=== PATIENT | female | born 1990 | race Caucasian/White ===

== ENCOUNTER 2016-11-19 11:50 | Emergency (ER) | payer MEDICAID ==
[2011-06-19 10:08] VITALS: BMI 21.8
[2016-11-19 12:44] LABS: APPEARANCE HAZY (CLEAR); BASOPHILS 0.3 % (0.0-2.0); BILIRUBIN NEGATIVE (NEGATIVE); COLOR YELLOW (YELLOW); EOSINOPHILS 0.5 % (0-7); GLUCOSE NEGATIVE (NEGATIVE); HEMATOCRIT 42.7 % (36.0-48.0); HEMOGLOBIN 14.7 g/dL (12-16); IMMATURE GRANULOCYTES 0.3 % (0-5); KETONE SMALL mg/dL (NEGATIVE); LEUKOCYTE ESTERASE NEGATIVE (NEGATIVE); LYMPHOCYTES 30.6 % (15-50); MCH 32.9 pg (26.0-34.0); MCHC 34.4 g/dL (31.0-37.0); MCV 95.5 fL (80.0-100.0); MEAN PLATELET VOLUME 10.8 fL (7.4-10.4); MONOCYTES 8.3 % (2-11); NITRITE NEGATIVE (NEGATIVE); PLATELET COUNT 200 10x3/uL (130-400); PROTEIN NEGATIVE (NEGATIVE); RBC 4.47 10x6/uL (4.00-5.40); RDW 12.6 % (11.5-14.5); SPECIFIC GRAVITY 1.005 (1.005-1.020); UROBILINOGEN NORMAL (NORMAL); WBC 7.3 10x3/uL (4.8-10.8)
[2016-11-19 13:25] LABS: ALBUMIN 4.5 g/dL (3.4-5.0); ALKALINE PHOSPHATASE 64 U/L (46-116); ALT (SGPT) 14 U/L (10-68); BILIRUBIN - TOTAL 0.78 mg/dL (0.2-1.3); CALC OSMOLALITY 275 mosm/kg (275-300); CALCIUM 9.1 mg/dL (8.5-10.1); CARBON DIOXIDE 22.4 mmol/L (21.0-32.0); CHLORIDE - SERUM 101 mmol/L (98-107); CREATININE - SERUM 0.5 mg/dL (0.6-1.3); GLUCOSE 92 mg/dL (74-106); PROTEIN - SERUM 7.7 g/dL (6.4-8.2); SODIUM 138 mmol/L (136-145); UREA NITROGEN 13 mg/dL (7-18); eGFR NON AFRICAN AMERICAN > 90 mL/min (90-120)
== END 2016-11-19 18:06 | disposition home or self-care (01) ==
LOC: D.ER 11:50
PROVIDERS: Emergency Medicine
DX: J01.90 Acute sinusitis, unspecified (principal); B34.9 Viral infection, unspecified; F17.200 Nicotine dependence, unspecified, uncomplicated

== ENCOUNTER 2017-08-06 08:15 | Emergency (ER) | payer MEDICAID ==
[2011-06-19 10:08] VITALS: BMI 21.8
[2017-08-06 08:49] LABS: BASOPHILS 0.3 % (0-2); HEMATOCRIT 40.9 % (36.0-48.0); HEMOGLOBIN 14.4 g/dL (12-16); IMMATURE GRANULOCYTES 0.5 % (0-5); LYMPHOCYTES 24.3 % (15-50); MCH 33.4 pg (26.0-34.0); MCHC 35.2 g/dL (31.0-37.0); MCV 94.9 fL (80.0-100.0); MONOCYTES 5.9 % (2-11); PLATELET COUNT 225 10x3/uL (130-400); RBC 4.31 10x6/uL (4.00-5.40); RDW 11.7 % (11.5-14.5); WBC 11.8 10x3/uL (4.8-10.8)
[2017-08-06 09:00] LABS: ALBUMIN 4.2 g/dL (3.4-5.0); ALKALINE PHOSPHATASE 65 U/L (46-116); ALT (SGPT) 18 U/L (10-68); AMYLASE - SERUM 75 U/L (25-115); BILIRUBIN - TOTAL 1.69 mg/dL (0.2-1.3); CALC OSMOLALITY 273 mosm/kg (275-300); CALCIUM 9.3 mg/dL (8.5-10.1); CARBON DIOXIDE 22.4 mmol/L (21.0-32.0); CHLORIDE - SERUM 104 mmol/L (98-107); CREATININE - SERUM 0.6 mg/dL (0.6-1.3); GLUCOSE 110 mg/dL (74-106); LIPASE 192 U/L (73-393); POTASSIUM - SERUM 4.1 mmol/L (3.5-5.1); PROTEIN - SERUM 7.4 g/dL (6.4-8.2); SODIUM 137 mmol/L (136-145); UREA NITROGEN 10 mg/dL (7-18); eGFR NON AFRICAN AMERICAN > 90 mL/min (90-120)
[2017-08-06 09:14] LABS: APPEARANCE HAZY (CLEAR); BILIRUBIN NEGATIVE (NEGATIVE); COLOR YELLOW (YELLOW); GLUCOSE NEGATIVE (NEGATIVE); KETONE NEGATIVE (NEGATIVE); NITRITE NEGATIVE (NEGATIVE); PROTEIN NEGATIVE (NEGATIVE); SPECIFIC GRAVITY 1.005 (1.005-1.020); UROBILINOGEN NORMAL (NORMAL); WHITE CELLS - URINE 0-5 /hpf (0-5)
[2017-08-06 09:15] LABS: BACTERIA MODERATE /hpf (NONE SEEN); EPITHELIAL CELLS 0-5 /hpf (0-5); MUCUS <1+ /lpf (NONE SEEN)
[2017-08-06 09:16] LABS: HCG URINE NEGATIVE (NEGATIVE)
== END 2017-08-06 12:37 | disposition home or self-care (01) ==
LOC: D.ER 08:15
PROVIDERS: Emergency Medicine
DX: R10.9 Unspecified abdominal pain (principal)

== ENCOUNTER 2017-09-08 07:24 | Emergency (ER) | payer MEDICAID ==
[2011-06-19 10:08] VITALS: BMI 21.8
[2017-09-08 07:49] LABS: BASOPHILS 0.2 % (0-2); EOSINOPHILS 1.2 % (0-7); HEMATOCRIT 43.9 % (36.0-48.0); HEMOGLOBIN 15.5 g/dL (12-16); IMMATURE GRANULOCYTES 0.4 % (0-5); LYMPHOCYTES 15.3 % (15-50); MCH 33.9 pg (26.0-34.0); MCHC 35.3 g/dL (31.0-37.0); MCV 96.1 fL (80.0-100.0); MONOCYTES 4.8 % (2-11); NEUTROPHILS 78.1 % (40-80); PLATELET COUNT 239 10x3/uL (130-400); RBC 4.57 10x6/uL (4.00-5.40); RDW 12.3 % (11.5-14.5); WBC 12.1 10x3/uL (4.8-10.8)
[2017-09-08 08:05] LABS: HCG URINE NEGATIVE (NEGATIVE)
[2017-09-08 08:12] LABS: ALBUMIN 4.3 g/dL (3.4-5.0); ALKALINE PHOSPHATASE 76 U/L (46-116); ALT (SGPT) 12 U/L (10-68); AMYLASE - SERUM 69 U/L (25-115); BILIRUBIN - TOTAL 1.63 mg/dL (0.2-1.3); CALC OSMOLALITY 281 mosm/kg (275-300); CALCIUM 9.2 mg/dL (8.5-10.1); CARBON DIOXIDE 23.8 mmol/L (21.0-32.0); CHLORIDE - SERUM 105 mmol/L (98-107); CREATININE - SERUM 0.8 mg/dL (0.6-1.3); GLUCOSE 110 mg/dL (74-106); LIPASE 259 U/L (73-393); POTASSIUM - SERUM 3.5 mmol/L (3.5-5.1); PROTEIN - SERUM 7.6 g/dL (6.4-8.2); SODIUM 141 mmol/L (136-145); UREA NITROGEN 13 mg/dL (7-18); eGFR NON AFRICAN AMERICAN > 90 mL/min (90-120)
[2017-09-08 08:12] LABS: APPEARANCE CLOUDY (CLEAR); BILIRUBIN NEGATIVE (NEGATIVE); COLOR YELLOW (YELLOW); GLUCOSE NEGATIVE (NEGATIVE); KETONE NEGATIVE (NEGATIVE); NITRITE NEGATIVE (NEGATIVE); PROTEIN NEGATIVE (NEGATIVE)
[2017-09-08 08:15] LABS: AMORPHOUS SEDIMENT >1+ /lpf (NONE SEEN); BACTERIA MODERATE /hpf (NONE SEEN); GRANULAR CAST 0-5 /lpf (NONE SEEN); MUCUS <1+ /lpf (NONE SEEN); WHITE CELLS - URINE 0-5 /hpf (0-5)
== END 2017-09-08 11:33 | disposition home or self-care (01) ==
LOC: D.ER 07:24
PROVIDERS: Emergency Medicine
DX: N83.201 Unspecified ovarian cyst, right side (principal); F17.200 Nicotine dependence, unspecified, uncomplicated

== ENCOUNTER 2017-09-13 11:39 | Emergency (ER) | payer MEDICAID ==
[2011-06-19 10:08] VITALS: BMI 21.8
[2017-09-13 12:24] LABS: APPEARANCE CLEAR (CLEAR); BILIRUBIN NEGATIVE (NEGATIVE); COLOR YELLOW (YELLOW); GLUCOSE NEGATIVE (NEGATIVE); KETONE NEGATIVE (NEGATIVE); NITRITE NEGATIVE (NEGATIVE); PROTEIN NEGATIVE (NEGATIVE); SPECIFIC GRAVITY 1.015 (1.005-1.020); UROBILINOGEN NORMAL (NORMAL)
[2017-09-13 12:28] LABS: UDS - AMPHET NEGATIVE QUAL (NEGATIVE); UDS - BARB NEGATIVE QUAL (NEGATIVE); UDS - BENZO NEGATIVE QUAL (NEGATIVE); UDS - COCAINE NEGATIVE QUAL (NEGATIVE); UDS - OPIATE POSITIVE QUAL (NEGATIVE); UDS - PCP NEGATIVE QUAL (NEGATIVE); UDS - THC POSITIVE QUAL (NEGATIVE)
[2017-09-13 12:29] LABS: HCG URINE NEGATIVE (NEGATIVE)
[2017-09-13 12:31] LABS: BASOPHILS 0.2 % (0-2); EOSINOPHILS 0.2 % (0-7); HEMATOCRIT 40.9 % (36.0-48.0); HEMOGLOBIN 13.5 g/dL (12-16); IMMATURE GRANULOCYTES 0.2 % (0-5); LYMPHOCYTES 12.4 % (15-50); MEAN PLATELET VOLUME 10.7 fL (7.4-10.4); PLATELET COUNT 234 10x3/uL (130-400); RBC 4.09 10x6/uL (4.00-5.40); RDW 12.8 % (11.5-14.5); WBC 12.3 10x3/uL (4.8-10.8)
[2017-09-13 12:38] LABS: CALCIUM 8.9 mg/dL (8.5-10.1); CARBON DIOXIDE 25.5 mmol/L (21.0-32.0); CHLORIDE - SERUM 106 mmol/L (98-107); CREATININE - SERUM 0.7 mg/dL (0.6-1.3); POTASSIUM - SERUM 3.8 mmol/L (3.5-5.1); SODIUM 141 mmol/L (136-145); eGFR NON AFRICAN AMERICAN > 90 mL/min (90-120)
[2017-09-13 12:55] LABS: ALBUMIN 3.7 g/dL (3.4-5.0); ALKALINE PHOSPHATASE 53 U/L (46-116); ALT (SGPT) 17 U/L (10-68); CALC OSMOLALITY 280 mosm/kg (275-300); GLUCOSE 113 mg/dL (74-106); PROTEIN - SERUM 6.7 g/dL (6.4-8.2); UREA NITROGEN 9 mg/dL (7-18)
== END 2017-09-13 13:55 | disposition home or self-care (01) ==
LOC: D.ER 11:39
PROVIDERS: Emergency Medicine
DX: F41.9 Anxiety disorder, unspecified (principal); R00.0 Tachycardia, unspecified

== ENCOUNTER 2017-09-17 14:51 | Emergency (ER) | payer MEDICAID ==
[2011-06-19 10:08] VITALS: BMI 21.8
== END 2017-09-17 16:44 | disposition home or self-care (01) ==
LOC: D.ER 14:51
DX: M62.838 Other muscle spasm (principal); S16.1XXA Strain of muscle, fascia and tendon at neck level, initial encounter; X58.XXXA Exposure to other specified factors, initial encounter; Y93.89 Activity, other specified; Y92.019 Unspecified place in single-family (private) house as the place of occurrence of the external cause; F17.200 Nicotine dependence, unspecified, uncomplicated

== ENCOUNTER 2017-11-14 09:08 | Emergency (ER) | payer MEDICAID ==
[2011-06-19 10:08] VITALS: BMI 21.8
[2017-11-14 09:48] LABS: BASOPHILS 0.3 % (0-2); EOSINOPHILS 0.4 % (0-7); HEMATOCRIT 40.5 % (36.0-48.0); IMMATURE GRANULOCYTES 0.1 % (0-5); LYMPHOCYTES 17.4 % (15-50); MCH 32.9 pg (26.0-34.0); MCHC 34.6 g/dL (31.0-37.0); MCV 95.1 fL (80.0-100.0); MEAN PLATELET VOLUME 11.1 fL (7.4-10.4); MONOCYTES 5.6 % (2-11); NEUTROPHILS 76.2 % (40-80); PLATELET COUNT 197 10x3/uL (130-400); RBC 4.26 10x6/uL (4.00-5.40); RDW 12.2 % (11.5-14.5); WBC 10.1 10x3/uL (4.8-10.8)
[2017-11-14 09:54] LABS: ALBUMIN 4.3 g/dL (3.4-5.0); ALKALINE PHOSPHATASE 58 U/L (46-116); ALT (SGPT) 13 U/L (10-68); BILIRUBIN - TOTAL 2.66 mg/dL (0.2-1.3); CALC OSMOLALITY 279 mosm/kg (275-300); CALCIUM 8.9 mg/dL (8.5-10.1); CARBON DIOXIDE 28.7 mmol/L (21.0-32.0); CHLORIDE - SERUM 104 mmol/L (98-107); CREATININE - SERUM 0.8 mg/dL (0.6-1.3); GLUCOSE 96 mg/dL (74-106); PROTEIN - SERUM 7.1 g/dL (6.4-8.2); SODIUM 140 mmol/L (136-145); UREA NITROGEN 14 mg/dL (7-18); eGFR NON AFRICAN AMERICAN > 90 mL/min (90-120)
[2017-11-14 12:48] LABS: APPEARANCE HAZY (CLEAR); BILIRUBIN NEGATIVE (NEGATIVE); COLOR YELLOW (YELLOW); GLUCOSE NEGATIVE (NEGATIVE); KETONE NEGATIVE (NEGATIVE); NITRITE NEGATIVE (NEGATIVE); PROTEIN NEGATIVE (NEGATIVE); SPECIFIC GRAVITY 1.005 (1.005-1.020)
[2017-11-14 12:49] LABS: BACTERIA MODERATE /hpf (NONE SEEN); MUCUS <1+ /lpf (NONE SEEN); RED CELLS - URINE RARE /hpf (0-5); SPERMATOZOA RARE /hpf (NONE SEEN); WHITE CELLS - URINE 0-5 /hpf (0-5)
== END 2017-11-14 16:18 | disposition home or self-care (01) ==
LOC: D.ER 09:08
PROVIDERS: Family Medicine
DX: N39.0 Urinary tract infection, site not specified (principal)

== ENCOUNTER 2017-11-19 07:31 | Emergency (ER) | payer MEDICAID ==
[2011-06-19 10:08] VITALS: BMI 21.8
[2017-11-19 08:20] LABS: APPEARANCE SLT CLOUDY (CLEAR); BACTERIA MODERATE /hpf (NONE SEEN); BILIRUBIN NEGATIVE (NEGATIVE); COLOR YELLOW (YELLOW); GLUCOSE NEGATIVE (NEGATIVE); KETONE NEGATIVE (NEGATIVE); NITRITE NEGATIVE (NEGATIVE); PROTEIN NEGATIVE (NEGATIVE); SPECIFIC GRAVITY 1.005 (1.005-1.020); UROBILINOGEN NORMAL (NORMAL); WHITE CELLS - URINE 0-5 /hpf (0-5)
== END 2017-11-19 08:35 | disposition home or self-care (01) ==
LOC: D.ER 07:31
PROVIDERS: Emergency Medicine
DX: N28.89 Other specified disorders of kidney and ureter (principal); M54.5 Low back pain

== ENCOUNTER 2017-11-24 14:22 | Emergency (ER) | payer MEDICAID ==
[2011-06-19 10:08] VITALS: BMI 21.8
[2017-11-24 15:26] LABS: APPEARANCE HAZY (CLEAR); BILIRUBIN NEGATIVE (NEGATIVE); COLOR YELLOW (YELLOW); GLUCOSE NEGATIVE (NEGATIVE); KETONE NEGATIVE (NEGATIVE); NITRITE NEGATIVE (NEGATIVE); PROTEIN TRACE mg/dL (NEGATIVE); UROBILINOGEN NORMAL (NORMAL)
[2017-11-24 15:27] LABS: BACTERIA FEW /hpf (NONE SEEN); EPITHELIAL CELLS 0-5 /hpf (0-5); MUCUS <1+ /lpf (NONE SEEN); RED CELLS - URINE 0-5 /hpf (0-5); WHITE CELLS - URINE 0-5 /hpf (0-5)
== END 2017-11-24 19:11 | disposition home or self-care (01) ==
LOC: D.ER 14:22
PROVIDERS: Family Medicine
DX: R10.9 Unspecified abdominal pain (principal); N28.89 Other specified disorders of kidney and ureter; J11.1 Influenza due to unidentified influenza virus with other respiratory manifestations; F17.200 Nicotine dependence, unspecified, uncomplicated

== ENCOUNTER 2017-12-08 11:16 | Inpatient (IN) | payer MEDICAID ==
[~2017-12-08] VITALS: Ht 162.6 cm; Wt 46.9 kg
[2017-12-08 11:54] LABS: INR 1.11 (0.85-1.17); PROTIME 13.9 SECONDS (11.6-15.0)
[2017-12-08 11:55] LABS: BASOPHILS 0.1 % (0-2); EOSINOPHILS 0 % (0-7); HEMATOCRIT 42.8 % (36.0-48.0); HEMOGLOBIN 15.2 g/dL (12-16); IMMATURE GRANULOCYTES 0.5 % (0-5); LYMPHOCYTES 5.2 % (15-50); MCHC 35.5 g/dL (31.0-37.0); MONOCYTES 2.5 % (2-11); NEUTROPHILS 91.7 % (40-80); PLATELET COUNT 266 10x3/uL (130-400)
[2017-12-08 12:00] LABS: ALBUMIN 4.8 g/dL (3.4-5.0); ANION GAP 19.8 mmol/L (8-16); BILIRUBIN - TOTAL 1.1 mg/dL (0.2-1.3); CALCIUM 9.9 mg/dL (8.5-10.1); CARBON DIOXIDE 23.9 mmol/L (21.0-32.0); MAGNESIUM - SERUM 1.5 mg/dL (1.8-2.4); POTASSIUM - SERUM 3.7 mmol/L (3.5-5.1); PROTEIN - SERUM 8.6 g/dL (6.4-8.2)
[2017-12-08 12:11] LABS: UDS - AMPHET NEGATIVE QUAL (NEGATIVE); UDS - BARB NEGATIVE QUAL (NEGATIVE); UDS - BENZO POSITIVE QUAL (NEGATIVE); UDS - COCAINE NEGATIVE QUAL (NEGATIVE); UDS - OPIATE NEGATIVE QUAL (NEGATIVE); UDS - PCP NEGATIVE QUAL (NEGATIVE); UDS - THC POSITIVE QUAL (NEGATIVE)
[2017-12-08 13:03] LABS: APPEARANCE HAZY (CLEAR); BACTERIA FEW /hpf (NONE SEEN); BILIRUBIN NEGATIVE (NEGATIVE); COLOR YELLOW (YELLOW); EPITHELIAL CELLS 0-5 /hpf (0-5); GLUCOSE NEGATIVE (NEGATIVE); KETONE MODERATE mg/dL (NEGATIVE); MUCUS <1+ /lpf (NONE SEEN); NITRITE NEGATIVE (NEGATIVE); PROTEIN 1+ mg/dL (NEGATIVE); RED CELLS - URINE RARE /hpf (0-5); SPECIFIC GRAVITY 1.005 (1.005-1.020); UROBILINOGEN NORMAL (NORMAL); WHITE CELLS - URINE 0-5 /hpf (0-5)
[2017-12-08 19:15] LABS: HEMATOCRIT 37.5 % (36.0-48.0); HEMOGLOBIN 13.2 g/dL (12-16)
[2017-12-08] MEDS ORDERED: HYDROCODONE-APA1 TAB PO (21:38)
[2017-12-08 22:21] LABS: HEMATOCRIT 34.5 % (36.0-48.0)
[2017-12-09 01:31] VITALS: BMI 18.9
[2017-12-09 04:00] VITALS: BP 91/49
[2017-12-09 05:52] LABS: BASOPHILS 0.1 % (0-2); EOSINOPHILS 0.1 % (0-7); HEMATOCRIT 33.4 % (36.0-48.0); HEMOGLOBIN 11.4 g/dL (12-16); IMMATURE GRANULOCYTES 0.3 % (0-5); LYMPHOCYTES 25.9 % (15-50); MCH 32.2 pg (26.0-34.0); MCHC 34.1 g/dL (31.0-37.0); MCV 94.4 fL (80.0-100.0); MEAN PLATELET VOLUME 10.5 fL (7.4-10.4); MONOCYTES 7.4 % (2-11); NEUTROPHILS 66.2 % (40-80)
[2017-12-09 06:14] LABS: CALCIUM 8.3 mg/dL (8.5-10.1); CARBON DIOXIDE 24.3 mmol/L (21.0-32.0); CHLORIDE - SERUM 106 mmol/L (98-107); POTASSIUM - SERUM 3.3 mmol/L (3.5-5.1); SODIUM 140 mmol/L (136-145)
[2017-12-09 06:18] LABS: CALC OSMOLALITY 278 mosm/kg (275-300); CREATININE - SERUM 0.6 mg/dL (0.6-1.3); GLUCOSE 91 mg/dL (74-106); UREA NITROGEN 12 mg/dL (7-18); eGFR NON AFRICAN AMERICAN > 90 mL/min (90-120)
[2017-12-09 06:21] LABS: PLATELET COUNT 190 10x3/uL (130-400); RBC 3.54 10x6/uL (4.00-5.40)
[2017-12-09 08:46] VITALS: BP 101/57
[2017-12-09 09:20] LABS: INR 1.11 (0.85-1.17); PROTIME 13.9 SECONDS (11.6-15.0)
[2017-12-09 10:41] VITALS: BMI 18.8
[2017-12-09 11:47] LABS: HEMATOCRIT 35.1 % (36.0-48.0)
[2017-12-09 11:53] VITALS: BP 106/61
[2017-12-09 12:14] VITALS: Ht 162.6 cm; Wt 46.9 kg
[2017-12-09 15:59] VITALS: BP 100/48
[2017-12-09 18:31] LABS: HEMATOCRIT 33.6 % (36.0-48.0); HEMOGLOBIN 11.6 g/dL (12-16)
[2017-12-09 20:56] VITALS: BP 105/55
[2017-12-09 23:15] LABS: HEMATOCRIT 32.8 % (36.0-48.0); HEMOGLOBIN 11.2 g/dL (12-16)
[2017-12-10 01:20] VITALS: BP 113/51
[2017-12-10 05:40] LABS: BASOPHILS 0.2 % (0-2); EOSINOPHILS 0.3 % (0-7); HEMATOCRIT 32.9 % (36.0-48.0); HEMOGLOBIN 11.3 g/dL (12-16); IMMATURE GRANULOCYTES 0.3 % (0-5); LYMPHOCYTES 35.5 % (15-50); MCH 32.2 pg (26.0-34.0); MCHC 34.3 g/dL (31.0-37.0); MCV 93.7 fL (80.0-100.0); MEAN PLATELET VOLUME 10.6 fL (7.4-10.4); MONOCYTES 5.5 % (2-11); NEUTROPHILS 58.2 % (40-80); PLATELET COUNT 181 10x3/uL (130-400); RBC 3.51 10x6/uL (4.00-5.40); RDW 11.8 % (11.5-14.5); WBC 9.4 10x3/uL (4.8-10.8)
[2017-12-10 05:51] LABS: CALC OSMOLALITY 279 mosm/kg (275-300); CALCIUM 7.9 mg/dL (8.5-10.1); CARBON DIOXIDE 23.7 mmol/L (21.0-32.0); CHLORIDE - SERUM 106 mmol/L (98-107); CREATININE - SERUM 0.7 mg/dL (0.6-1.3); GLUCOSE 75 mg/dL (74-106); POTASSIUM - SERUM 3.7 mmol/L (3.5-5.1); SODIUM 140 mmol/L (136-145); eGFR NON AFRICAN AMERICAN > 90 mL/min (90-120)
[2017-12-10 05:57] LABS: UREA NITROGEN 19 mg/dL (7-18)
[2017-12-10 06:40] VITALS: BP 95/42
[2017-12-10 08:35] VITALS: BP 110/71
[2017-12-10 11:59] VITALS: BP 114/57
[2017-12-10] MEDS ORDERED: NICODERM C1 PATCH .1 TRANSDERM (14:45)
[2017-12-10] MEDS ORDERED: OMEPRAZOLE40 MG PO (14:45)
[2017-12-10] MEDS ORDERED: PEPCID40 MG PO (14:46)
[2017-12-10 15:24] VITALS: BP 99/44
== END 2017-12-10 17:23 | disposition home or self-care (01) | DRG 381 ==
LOC: D.ER 11:16 → D.M2 19:45 → D.EDHOLD 19:45 → D.M2 19:57
PROVIDERS: Internal Medicine Gastroenterology; Internal Medicine Nephrology; Nurse Practitioner Family
PROC: 0DB58ZX Excision of Esophagus, Via Natural or Artificial Opening Endoscopic, Diagnostic (ICD-10-PCS; principal; 2017-12-09 16:00)
DX: K22.11 Ulcer of esophagus with bleeding (principal); D62 Acute posthemorrhagic anemia; Z68.1 Body mass index [BMI] 19.9 or less, adult; K92.2 Gastrointestinal hemorrhage, unspecified; E83.59 Other disorders of calcium metabolism; N29 Other disorders of kidney and ureter in diseases classified elsewhere; F41.9 Anxiety disorder, unspecified; K27.9 Peptic ulcer, site unspecified, unspecified as acute or chronic, without hemorrhage or perforation

== ENCOUNTER 2018-02-07 09:56 | Emergency (ER) | payer MEDICAID ==
[2017-12-09 12:14] VITALS: BMI 18.8
[~2018-02-07 09:56] MED LIST: HYDROCODONE-APA1 TAB PO; NICODERM C1 PATCH .1 TRANSDERM; OMEPRAZOLE40 MG PO; PEPCID40 MG PO
[2018-02-07 10:22] LABS: BASOPHILS 0.2 % (0-2); EOSINOPHILS 0.3 % (0-7); HEMATOCRIT 42.9 % (36.0-48.0); HEMOGLOBIN 15.4 g/dL (12-16); IMMATURE GRANULOCYTES 0.3 % (0-5); MCH 33.6 pg (26.0-34.0); MCHC 35.9 g/dL (31.0-37.0); MCV 93.5 fL (80.0-100.0); MEAN PLATELET VOLUME 10.9 fL (7.4-10.4); NEUTROPHILS 76.2 % (40-80); PLATELET COUNT 219 10x3/uL (130-400); RBC 4.59 10x6/uL (4.00-5.40); WBC 9.6 10x3/uL (4.8-10.8)
[2018-02-07 10:32] LABS: ALBUMIN 4.6 g/dL (3.4-5.0); ALKALINE PHOSPHATASE 61 U/L (46-116); ALT (SGPT) 14 U/L (10-68); BILIRUBIN - TOTAL 3.07 mg/dL (0.2-1.3); CALC OSMOLALITY 277 mosm/kg (275-300); CALCIUM 9.3 mg/dL (8.5-10.1); CARBON DIOXIDE 21.6 mmol/L (21.0-32.0); CHLORIDE - SERUM 102 mmol/L (98-107); CREATININE - SERUM 0.9 mg/dL (0.6-1.3); POTASSIUM - SERUM 3.4 mmol/L (3.5-5.1); PROTEIN - SERUM 7.8 g/dL (6.4-8.2); SODIUM 137 mmol/L (136-145); UREA NITROGEN 17 mg/dL (7-18); eGFR NON AFRICAN AMERICAN 80 mL/min (90-120)
[2018-02-07 10:33] LABS: GLUCOSE 131 mg/dL (74-106)
[2018-02-07 10:49] LABS: APPEARANCE HAZY (CLEAR); BILIRUBIN NEGATIVE (NEGATIVE); COLOR YELLOW (YELLOW); GLUCOSE NEGATIVE (NEGATIVE); KETONE NEGATIVE (NEGATIVE); NITRITE NEGATIVE (NEGATIVE); PROTEIN 2+ mg/dL (NEGATIVE); SPECIFIC GRAVITY 1.015 (1.005-1.020); UROBILINOGEN NORMAL (NORMAL)
[2018-02-07 10:51] LABS: AMYLASE - SERUM 180 U/L (25-115); LIPASE 130 U/L (73-393)
[2018-02-07 10:51] LABS: BACTERIA MODERATE /hpf (NONE SEEN); CALCIUM OXALATE CRYSTALS OCC /hpf (NONE SEEN); MUCUS >1+ /lpf (NONE SEEN); RED CELLS - URINE 0-5 /hpf (0-5); WHITE CELLS - URINE 0-5 /hpf (0-5)
[2018-02-07 12:08] LABS: HCG URINE NEGATIVE (NEGATIVE); UDS - AMPHET NEGATIVE QUAL (NEGATIVE); UDS - BARB NEGATIVE QUAL (NEGATIVE); UDS - BENZO POSITIVE QUAL (NEGATIVE); UDS - COCAINE NEGATIVE QUAL (NEGATIVE); UDS - OPIATE NEGATIVE QUAL (NEGATIVE); UDS - PCP NEGATIVE QUAL (NEGATIVE); UDS - THC POSITIVE QUAL (NEGATIVE)
== END 2018-02-07 15:45 | disposition home or self-care (01) ==
LOC: D.ER 09:56
PROVIDERS: Emergency Medicine; Nurse Practitioner Family
DX: K52.9 Noninfective gastroenteritis and colitis, unspecified (principal); R11.10 Vomiting, unspecified; F17.200 Nicotine dependence, unspecified, uncomplicated

== ENCOUNTER 2018-02-11 08:01 | Emergency (ER) | payer MEDICAID ==
[2017-12-09 12:14] VITALS: BMI 18.8
[2018-02-11 08:29] LABS: BASOPHILS 0.5 % (0-2); EOSINOPHILS 3.5 % (0-7); HEMATOCRIT 39.5 % (36.0-48.0); IMMATURE GRANULOCYTES 0.3 % (0-5); LYMPHOCYTES 21.9 % (15-50); MCH 33.6 pg (26.0-34.0); MCHC 35.4 g/dL (31.0-37.0); MCV 94.7 fL (80.0-100.0); MONOCYTES 10.3 % (2-11); NEUTROPHILS 63.5 % (40-80); PLATELET COUNT 192 10x3/uL (130-400); RBC 4.17 10x6/uL (4.00-5.40); WBC 6.3 10x3/uL (4.8-10.8)
[2018-02-11 08:47] LABS: ALKALINE PHOSPHATASE 56 U/L (46-116); ALT (SGPT) 14 U/L (10-68); AMYLASE - SERUM 41 U/L (25-115); CALC OSMOLALITY 280 mosm/kg (275-300); CALCIUM 9.1 mg/dL (8.5-10.1); CHLORIDE - SERUM 105 mmol/L (98-107); CREATININE - SERUM 0.9 mg/dL (0.6-1.3); GLUCOSE 101 mg/dL (74-106); LIPASE 101 U/L (73-393); POTASSIUM - SERUM 3.4 mmol/L (3.5-5.1); PROTEIN - SERUM 6.8 g/dL (6.4-8.2); SODIUM 141 mmol/L (136-145); UREA NITROGEN 12 mg/dL (7-18); eGFR NON AFRICAN AMERICAN 80 mL/min (90-120)
[2018-02-11 09:20] LABS: APPEARANCE HAZY (CLEAR); BACTERIA FEW /hpf (NONE SEEN); BILIRUBIN NEGATIVE (NEGATIVE); COLOR YELLOW (YELLOW); EPITHELIAL CELLS 0-5 /hpf (0-5); GLUCOSE NEGATIVE (NEGATIVE); KETONE NEGATIVE (NEGATIVE); MUCUS >1+ /lpf (NONE SEEN); NITRITE NEGATIVE (NEGATIVE); PROTEIN NEGATIVE (NEGATIVE); RED CELLS - URINE 0-5 /hpf (0-5); SPECIFIC GRAVITY 1.015 (1.005-1.020); UROBILINOGEN NORMAL (NORMAL); WHITE CELLS - URINE RARE /hpf (0-5)
== END 2018-02-11 11:00 | disposition home or self-care (01) ==
LOC: D.ER 08:01
PROVIDERS: Family Medicine
DX: R11.10 Vomiting, unspecified (principal); K59.03 Drug induced constipation; T39.1X5A Adverse effect of 4-Aminophenol derivatives, initial encounter; Y92.019 Unspecified place in single-family (private) house as the place of occurrence of the external cause; F17.200 Nicotine dependence, unspecified, uncomplicated

== ENCOUNTER → 2018-07-02 11:36 | Emergency (ER) | payer SELFPAY ==
[2017-12-09 12:14] VITALS: BMI 18.8
[~2018-07-02 11:36] MED LIST changes: +BACTRIM 400-801 TAB PO; +HYDROCODON-ACE1 EAC7 PO; +MACROBID100 MG PO; +ZOFRAN ODT4 MG/UDTAB PO
== END | disposition home or self-care (01) ==
LOC: D.ER 11:36
DX: G43.909 Migraine, unspecified, not intractable, without status migrainosus (principal)

== ENCOUNTER 2018-07-08 06:15 | Emergency (ER) | payer SELFPAY ==
[~2018-07-08] VITALS: Ht 162.6 cm; Wt 50.9 kg
[~2018-07-08 06:15] MED LIST changes: -BACTRIM 400-801 TAB PO; -HYDROCODON-ACE1 EAC7 PO; -MACROBID100 MG PO; -ZOFRAN ODT4 MG/UDTAB PO
[2018-07-08 06:20] VITALS: Ht 162.6 cm; Wt 50.9 kg
[2018-07-08] MEDS ORDERED: BACTRIM 400-801 TAB PO (06:23)
[2018-07-08 06:57] LABS: BASOPHILS 1.1 % (0-2); EOSINOPHILS 3.1 % (0-7); HEMATOCRIT 36.1 % (36.0-48.0); HEMOGLOBIN 12.6 g/dL (12-16); IMMATURE GRANULOCYTES 0.7 % (0-5); LYMPHOCYTES 32.5 % (15-50); MCH 32.9 pg (26.0-34.0); MCHC 34.9 g/dL (31.0-37.0); MCV 94.3 fL (80.0-100.0); MEAN PLATELET VOLUME 10.2 fL (7.4-10.4); MONOCYTES 7.2 % (2-11); NEUTROPHILS 55.4 % (40-80); PLATELET COUNT 206 10x3/uL (130-400); RBC 3.83 10x6/uL (4.00-5.40); RDW 12.1 % (11.5-14.5); WBC 7.1 10x3/uL (4.8-10.8)
[2018-07-08 07:12] LABS: ALKALINE PHOSPHATASE 77 U/L (46-116); ALT (SGPT) 31 U/L (10-68); BILIRUBIN - TOTAL 0.54 mg/dL (0.2-1.3); CALC OSMOLALITY 286 mosm/kg (275-300); CALCIUM 8.7 mg/dL (8.5-10.1); CARBON DIOXIDE 24.9 mmol/L (21.0-32.0); CHLORIDE - SERUM 107 mmol/L (98-107); CREATININE - SERUM 0.8 mg/dL (0.6-1.3); GLUCOSE 116 mg/dL (74-106); PROTEIN - SERUM 7.1 g/dL (6.4-8.2); SODIUM 143 mmol/L (136-145); UREA NITROGEN 14 mg/dL (7-18); eGFR NON AFRICAN AMERICAN > 90 mL/min (90-120)
[2018-07-08 07:24] LABS: AMYLASE - SERUM 154 U/L (25-115); CKMB 0.3 U/L (0.0-3.6); CREATINE KINASE 47 UL (21-215); LIPASE 170 U/L (73-393)
[2018-07-08 07:25] LABS: TROPONIN-I < 0.017 ng/mL (0.000-0.060)
[2018-07-08 07:41] LABS: APPEARANCE CLEAR (CLEAR); BILIRUBIN NEGATIVE (NEGATIVE); COLOR YELLOW (YELLOW); GLUCOSE NEGATIVE (NEGATIVE); KETONE NEGATIVE (NEGATIVE); NITRITE NEGATIVE (NEGATIVE); PROTEIN NEGATIVE (NEGATIVE); UROBILINOGEN NORMAL (NORMAL)
[2018-07-08] MEDS ORDERED: MACROBID100 MG PO (07:55)
[2018-07-08] MEDS ORDERED: ZOFRAN ODT4 MG/UDTAB PO (07:56)
[2018-07-08] MEDS ORDERED: HYDROCODON-ACE1 EAC7 PO (07:56)
[2018-07-08 08:24] VITALS: BP 113/70
[2018-07-08 11:46] LABS: HCG URINE NEGATIVE (NEGATIVE)
== END 2018-07-08 08:30 | disposition home or self-care (01) ==
LOC: D.ER 06:15
PROVIDERS: Family Medicine
DX: M54.5 Low back pain (principal); R10.9 Unspecified abdominal pain; R11.2 Nausea with vomiting, unspecified

== ENCOUNTER 2018-08-01 02:09 | Emergency (ER) | payer SELFPAY ==
[~2018-08-01] VITALS: Ht 162.6 cm; Wt 59.1 kg
[~2018-08-01 02:09] MED LIST changes: +BACTRIM 400-801 TAB PO; +HYDROCODON-ACE1 EAC7 PO; +MACROBID100 MG PO; +ZOFRAN ODT4 MG/UDTAB PO
[2018-08-01 02:12] VITALS: Ht 162.6 cm; Wt 59.1 kg
[2018-08-01 02:34] LABS: APPEARANCE CLEAR (CLEAR); BILIRUBIN NEGATIVE (NEGATIVE); COLOR YELLOW (YELLOW); GLUCOSE NEGATIVE (NEGATIVE); KETONE SMALL mg/dL (NEGATIVE); NITRITE NEGATIVE (NEGATIVE); PROTEIN NEGATIVE (NEGATIVE)
[2018-08-01] MEDS ORDERED: NORCO 5/325 TAB1 TAB PO (04:59)
[2018-08-01] MEDS ORDERED: CYCLOBENZAPRINE10 MG PO (04:59)
[2018-08-01 05:17] VITALS: BP 134/78
== END 2018-08-01 05:17 | disposition home or self-care (01) ==
LOC: D.ER 02:09
PROVIDERS: Family Medicine
DX: M54.5 Low back pain (principal); F17.200 Nicotine dependence, unspecified, uncomplicated

== ENCOUNTER 2018-08-05 05:23 | Observation (INO) | payer MEDICAID ==
[~2018-08-05] VITALS: Ht 165.1 cm; Wt 51.7 kg
--- NOTE | ~2018-08-05 | MORECARE ---
CASE MANAGEMENT DISCHARGE SUMMARY PATIENT: PEGGY AVENDANO UNIT: [id number] ADM DATE: 08/05/18 AGE: 27 : [birth year] SEX: F ROOM/BED: D.2233 AUTHOR: STEFAN,DOC PHYSICIAN: REFERRING PHYSICIAN: LUH MAE MD DATE OF SERVICE: 08/06/18 Discharge Plan Patient Name: PEGGY AVENDANO Facility: [facility]:[place] : 1990 Planned Disposition: Home Anticipated Discharge Date: Discharge Date: Expected LOS: Initial Reviewer: [email or web address] Initial Review Date: 08/06/2018 Generated: 08/06/18 4:48 pm Comments DCP- Discharge Planning Updated by [email or web address]: Radha Carroll on 08/06/18 2:[address] Patient Name: PEGGY AVENDANO Admission Status: ER Accout number: [id number] Admission Date: 08-05-2018 : 1990 Admission Diagnosis: Attending: LUH MAE Current LOS: 1 Anticipated DC Date: Planned Disposition: Home Primary Insurance: MEDICAID [place] PEND[place] Discharge Planning Comments: CM met with patient and her to discuss discharge planning/needs. States she lives with her and 3 children. States she does not have any DME or outside resources assisting in the house and does not need any at this time. States she would like a list of Medicaid doctors in [place]. I provided her with the number for [facility] and instructed to call them for the list. I did check with Adrian in the Medicaid office and Breonna in registration and they do not have a list. No needs identified at this time. CM will continue to follow and assist with discharge planning/needs. Manager Data Warehouse: Radha Carroll DCPIA - Discharge Planning Initial Assessment Updated by [email or web address]: Radha Carroll on 08/06/18 3:22 pm * Is the patient Alert and Oriented? Yes * How many steps to enter\exit or inside your home? 20-24 * PCP Dr. Walden * Pharmacy [facility] on [address] * Preadmission Environment Home with Family * ADLs Independent * Equipment None * List name and contact numbers for known caregivers / representatives who currently or will assist patient after discharge: Alejandro Pastor - [phone] Shaq Avendano - Dad - [phone] * Verbal permission to speak to the caregivers and representatives has been obtained from the patient. Yes * Community resources currently utilized None * Additional services required to return to the preadmission environment? No * Can the patient safely return to the preadmission environment? Yes * Has this patient been hospitalized within the prior 30 days at any hospital? No Last DP export: 08/06/18 2:28 Patient Name: PEGGY AVENDANO Page 09988 at 1548 All edits/amendments must be made on the electronic document DICTATION DATE: 08/06/181547 PULVI MIXER OPERATOR: PATRICIA 08/06/181547 RPT#: [id number] DC DATE: STATUS: ADM IN [facility] [address] [place] [address] END OF REPORT
--- NOTE | ~2018-08-05 | MORECARE ---
CASE MANAGEMENT DISCHARGE SUMMARY PATIENT: PEGGY AVENDANO UNIT: [id number] ADM DATE: 08/05/18 AGE: 27 : 90 SEX: F ROOM/BED: D.2233 AUTHOR: STEFANDOC PHYSICIAN: REFERRING PHYSICIAN: LUH MAE MD DATE OF SERVICE: 08/10/18 Discharge Plan Patient Name: PEGGY AVENDANO Facility: [facility]:[place] : 1990 Planned Disposition: Home Anticipated Discharge Date: Discharge Date: 08/07/2018 Expected LOS: Initial Reviewer: [email or web address] Initial Review Date: 08/06/2018 Generated: 08/10/18 5:34 pm Comments DCP- Discharge Planning Updated by [email or web address]: Radha Carroll on 08/07/18 1:[address] Patient Name: PEGGY AVENDANO Encounter No: [id number] : 1990 Primary Insurance: MEDICAID [place] PENDING Anticipated DC Date: Planned Disposition: Home External Planned Provider: : DCP follow-up note: Patient in agreement with discharge plan. Smiling, just got out of the shower, states most of the pain is gone. States ambulating without difficulty. No changes to plan. Case management will follow and assist as needed. Radha Carroll DCP- Discharge Planning Updated by [email or web address]: Radha Carroll on 08/06/18 2:[address] Patient Name: PEGGY AVENDANO Admission Status: ER Accout number: [id number] Admission Date: 08-05-2018 : 1990 Admission Diagnosis: Attending: LUH MAE Current LOS: 1 Anticipated DC Date: Planned Disposition: Home Primary Insurance: MEDICAID [place] PENDING Discharge Planning Comments: CM met with patient and her to discuss discharge planning/needs. States she lives with her and 3 children. States she does not have any DME or outside resources assisting in the house and does not need any at this time. States she would like a list of Medicaid doctors in [place]. I provided her with the number for [facility] and instructed to call them for the list. I did check with Adrian in the Medicaid office and Breonna in registration and they do not have a list. No needs identified at this time. CM will continue to follow and assist with discharge planning/needs. Geospatial Systems Integrator: Radha Glen DCPIA - Discharge Planning Initial Assessment Updated by [email or web address]: Radha Glen on 08/06/18 3:22 pm * Is the patient Alert and Oriented? Yes * How many steps to enter\exit or inside your home? 20-24 * PCP Dr. Walden * Pharmacy [facility] on [address] * Preadmission Environment Home with Family * ADLs Independent * Equipment None * List name and contact numbers for known caregivers / representatives who currently or will assist patient after discharge: Alejandro Pastor - [phone] Shaq Mat - Dad - [phone] * Verbal permission to speak to the caregivers and representatives has been obtained from the patient. Yes * Community resources currently utilized None * Additional services required to return to the preadmission environment? No * Can the patient safely return to the preadmission environment? Yes * Has this patient been hospitalized within the prior 30 days at any hospital? No Last DP export: 08/07/18 1:26 Patient Name: PEGGY AVENDANO Page [id number] at 1634 All edits/amendments must be made on the electronic document DICTATION DATE: 08/10/181633 CARDIOVASCULAR RADIOLOGIC TECHNOLOGIST: PATRICIA 08/10/181633 RPT#: [id number] DC DATE:08/07/18 STATUS: DIS IN [facility] [address] [place] [address] END OF REPORT
--- NOTE | ~2018-08-05 | MORECARE ---
CASE MANAGEMENT DISCHARGE SUMMARY PATIENT: PEGGY AVENDANO UNIT: [id number] ADM DATE: 08/05/18 AGE: 27 : [birth year] SEX: F ROOM/BED: D.2233 AUTHOR: CRISTI AVILES PHYSICIAN: REFERRING PHYSICIAN: LUH MAE MD DATE OF SERVICE: 08/06/18 Discharge Plan Patient Name: PEGGY AVENDANO Facility: [facility]:[place] : 1990 Planned Disposition: Home Anticipated Discharge Date: Discharge Date: Expected LOS: Initial Reviewer: [email or web address] Initial Review Date: 08/06/2018 Generated: 08/06/18 4:19 pm Patient Name: PEGGY AVENDANO Page 18959 at 1519 All edits/amendments must be made on the electronic document DICTATION DATE: 08/06/181517 FIELD STAFF: PATRICIA 08/06/181517 RPT#: [id number] DC DATE: STATUS: ADM IN [facility] [address] [place] [address] END OF REPORT
--- NOTE | ~2018-08-05 | MORECARE ---
CASE MANAGEMENT DISCHARGE SUMMARY PATIENT: PEGGY AVENDANO UNIT: [id number] ADM DATE: 08/05/18 AGE: 27 : [birth year] SEX: F ROOM/BED: D.2233 AUTHOR: STEFAN,DOC PHYSICIAN: REFERRING PHYSICIAN: LUH MAE MD DATE OF SERVICE: 08/07/18 Discharge Plan Patient Name: PEGGY AVENDANO Facility: [facility]:[place] : 1990 Planned Disposition: Home Anticipated Discharge Date: Discharge Date: Expected LOS: Initial Reviewer: [email or web address] Initial Review Date: 08/06/2018 Generated: 08/07/18 3:26 pm Comments DCP- Discharge Planning Updated by [email or web address]: Radha Carroll on 08/07/18 1:[address] Patient Name: PEGGY AVENDANO Encounter No: [id number] : 1990 Primary Insurance: MEDICAID [place] PENDING Anticipated DC Date: Planned Disposition: Home External Planned Provider: : DCP follow-up note: Patient in agreement with discharge plan. Smiling, just got out of the shower, states most of the pain is gone. States ambulating without difficulty. No changes to plan. Case management will follow and assist as needed. Radha Glen DCP- Discharge Planning Updated by [email or web address]: Radha Carroll on 08/06/18 2:[address] Patient Name: PEGGY AVENDANO Admission Status: ER Accout number: [id number] Admission Date: 08-05-2018 : 1990 Admission Diagnosis: Attending: LUH MAE Current LOS: 1 Anticipated DC Date: Planned Disposition: Home Primary Insurance: MEDICAID [place] PENDING Discharge Planning Comments: CM met with patient and her to discuss discharge planning/needs. States she lives with her and 3 children. States she does not have any DME or outside resources assisting in the house and does not need any at this time. States she would like a list of Medicaid doctors in [place]. I provided her with the number for [facility] and instructed to call them for the list. I did check with Adrian in the Medicaid office and Breonna in registration and they do not have a list. No needs identified at this time. CM will continue to follow and assist with discharge planning/needs. Horseradish Grinder: Radha Glen DCPIA - Discharge Planning Initial Assessment Updated by [email or web address]: Radha Glen on 08/06/18 3:22 pm * Is the patient Alert and Oriented? Yes * How many steps to enter\exit or inside your home? 20-24 * PCP Dr. Walden * Pharmacy [facility] on [address] * Preadmission Environment Home with Family * ADLs Independent * Equipment None * List name and contact numbers for known caregivers / representatives who currently or will assist patient after discharge: Alejandro Pastor - [phone] Shaq Mat - Dad - [phone] * Verbal permission to speak to the caregivers and representatives has been obtained from the patient. Yes * Community resources currently utilized None * Additional services required to return to the preadmission environment? No * Can the patient safely return to the preadmission environment? Yes * Has this patient been hospitalized within the prior 30 days at any hospital? No Last DP export: 08/06/18 2:48 Patient Name: PEGGY AVENDANO Page 89833 at 1426 All edits/amendments must be made on the electronic document DICTATION DATE: 08/07/181424 MEDICAL ATTENDANT: PATRICIA 08/07/181424 RPT#: [id number] ME DATE: STATUS: ADM IN [facility] [address] [place] [address] END OF REPORT
--- NOTE | ~2018-08-05 | OP ---
PATIENT NAME: PEGGY AVENDANO MEDICAL RECORD: [id number] :[birth year] LOCATION:D[address]MS [address] ADMISSION DATE:08/05/18 SURGEON: CÉSAR COONEY MD DATE OF OPERATION: 08/06/2018 PREOPERATIVE DIAGNOSIS: Large disc herniation L4-L5, right. POSTOPERATIVE DIAGNOSES: Large disc herniation L4-L5, right with right L5 radiculopathy. SURGEON: César Cooney MD PROCEDURES: Lumbar laminotomy, medial facetectomy, and foraminotomy with discectomy and L4-L5 on the right with METRx retractor and microscope. DESCRIPTION AND TECHNIQUE: After induction of general endotracheal anesthesia, the patient was rolled prone on the Helio frame. Lumbar spine was prepped and draped in usual sterile fashion. Fluoroscopic x-ray and spinal needle localized the L4-L5 interspace on the right side. A stab incision was created with #11 blade and series of dilators were used to advance a METRx retractor to the L4-L5 interspace on the right side. Following this, the level was confirmed with fluoroscopic x-ray. A microscope and Midas Faustino drill were used to perform laminotomy, medial facetectomy, and foraminotomy L4-L5 on the right. Hypertrophied ligamentum flavum was removed with Cloward rongeurs. Following this, there was a large free fragment disc herniation located within the canal. This was removed in a piecemeal fashion with pituitary rongeurs and curettes as well as Alex elevator. Additional material was removed from the disc space. Following this, the L5 nerve root was decompressed well. Meticulous hemostasis was maintained throughout the wound. Wound was irrigated with copious amounts of Ancef irrigant solution. The retractor was removed. The fascia was reapproximated with interrupted 2-0 Vicryl suture, the subdermal layer was closed with 3-0 Vicryl suture. The skin was reapproximated with Steri-Strips and benzoin. A sterile dressing was applied to the wound. The patient was awakened in good condition and taken to recovery. All counts were reported as correct. Estimated blood loss was minimal. TRANSINT:[id number] Voice Confirmation ID: [id number] DOCUMENT ID: [id number] CÉSAR COONEY MD at 0582 CC: [id number] DICTATION DATE: 08/06/18 1346 LAUNDRY TECH: 08/06/18 1400 ADM IN [facility] [address] [place] [id number]
--- NOTE | ~2018-08-05 | MORECARE ---
CASE MANAGEMENT DISCHARGE SUMMARY PATIENT: PEGGY AVENDANO UNIT: [id number] ADM DATE: 08/05/18 AGE: 27 : [birth year] SEX: F ROOM/BED: D.2233 AUTHOR: CRISTI AVILES PHYSICIAN: REFERRING PHYSICIAN: LUH MAE MD DATE OF SERVICE: 08/06/18 Discharge Plan Patient Name: PEGGY AVENDANO [facility] : 1990 Planned Disposition: Home Anticipated Discharge Date: Discharge Date: Expected LOS: Initial Reviewer: [email or web address] Initial Review Date: 08/06/2018 Generated: 08/06/18 4:28 pm DCPIA - Discharge Planning Initial Assessment Updated by [email or web address]: Radha Carroll on 08/06/18 3:22 pm * Is the patient Alert and Oriented? Yes * How many steps to enter\exit or inside your home? 20-24 * PCP Dr. Walden * Pharmacy [facility] * Preadmission Environment Home with Family * ADLs Independent * Equipment None * List name and contact numbers for known caregivers / representatives who currently or will assist patient after discharge: Alejandro Pastor - [phone] ShaqHarry - Fif - [phone] * Verbal permission to speak to the caregivers and representatives has been obtained from the patient. Yes * Community resources currently utilized None * Additional services required to return to the preadmission environment? No * Can the patient safely return to the preadmission environment? Yes * Has this patient been hospitalized within the prior 30 days at any hospital? No Last DP export: 08/06/18 2:19 Patient Name: PEGGY AVENDANO Page 80470 at 1528 All edits/amendments must be made on the electronic document DICTATION DATE: 08/06/181527 CONSTRUCTION TEACHER: PATRICIA 08/06/181527 RPT#: [id number] DC DATE: STATUS: ADM IN [facility] [address] [place] [address] END OF REPORT
[~2018-08-05 05:23] MED LIST changes: +CYCLOBENZAPRINE10 MG PO; +NORCO 5/325 TAB1 TAB PO
[2018-08-05 06:13] LABS: HCG URINE NEGATIVE (NEGATIVE)
[2018-08-05 06:30] LABS: AMORPHOUS SEDIMENT <1+ /lpf (NONE SEEN); APPEARANCE CLEAR (CLEAR); BACTERIA MODERATE /hpf (NONE SEEN); BILIRUBIN NEGATIVE (NEGATIVE); COLOR YELLOW (YELLOW); GLUCOSE NEGATIVE (NEGATIVE); GRANULAR CAST RARE /lpf (NONE SEEN); KETONE NEGATIVE (NEGATIVE); MUCUS <1+ /lpf (NONE SEEN); NITRITE NEGATIVE (NEGATIVE); PROTEIN NEGATIVE (NEGATIVE); WHITE CELLS - URINE 0-5 /hpf (0-5)
[2018-08-05 06:41] LABS: BASOPHILS 0.5 % (0-2); EOSINOPHILS 1.2 % (0-7); HEMATOCRIT 35.5 % (36.0-48.0); HEMOGLOBIN 12.4 g/dL (12-16); IMMATURE GRANULOCYTES 0.4 % (0-5); LYMPHOCYTES 46.9 % (15-50); MCH 32.1 pg (26.0-34.0); MCHC 34.9 g/dL (31.0-37.0); MEAN PLATELET VOLUME 10.2 fL (7.4-10.4); MONOCYTES 8.9 % (2-11); NEUTROPHILS 42.1 % (40-80); PLATELET COUNT 214 10x3/uL (130-400); RBC 3.86 10x6/uL (4.00-5.40); RDW 12.5 % (11.5-14.5); WBC 8.1 10x3/uL (4.8-10.8)
[2018-08-05 06:57] LABS: ALBUMIN 3.6 g/dL (3.4-5.0); ALKALINE PHOSPHATASE 93 U/L (46-116); ALT (SGPT) 39 U/L (10-68); AMYLASE - SERUM 58 U/L (25-115); CALC OSMOLALITY 278 mosm/kg (275-300); CARBON DIOXIDE 22.4 mmol/L (21.0-32.0); CHLORIDE - SERUM 106 mmol/L (98-107); CREATININE - SERUM 0.6 mg/dL (0.6-1.3); GLUCOSE 106 mg/dL (74-106); LIPASE 139 U/L (73-393); POTASSIUM - SERUM 4.3 mmol/L (3.5-5.1); PROTEIN - SERUM 6.8 g/dL (6.4-8.2); SODIUM 140 mmol/L (136-145); UREA NITROGEN 13 mg/dL (7-18); eGFR NON AFRICAN AMERICAN > 90 mL/min (90-120)
[2018-08-05 08:39] LABS: UDS - AMPHET NEGATIVE QUAL (NEGATIVE); UDS - BARB NEGATIVE QUAL (NEGATIVE); UDS - BENZO NEGATIVE QUAL (NEGATIVE); UDS - COCAINE NEGATIVE QUAL (NEGATIVE); UDS - OPIATE NEGATIVE QUAL (NEGATIVE); UDS - PCP NEGATIVE QUAL (NEGATIVE); UDS - THC POSITIVE QUAL (NEGATIVE)
[2018-08-05 11:39] VITALS: BP 124/67; Ht 165.1 cm; Wt 51.7 kg
[2018-08-05 12:29] VITALS: BP 124/67
[2018-08-05 17:14] VITALS: BP 117/70
[2018-08-05 20:00] VITALS: BP 103/57
[2018-08-05 21:31] LABS: APPEARANCE CLEAR (CLEAR); COLOR YELLOW (YELLOW)
[2018-08-05 21:32] LABS: BILIRUBIN NEGATIVE (NEGATIVE); GLUCOSE NEGATIVE (NEGATIVE); KETONE MODERATE mg/dL (NEGATIVE); NITRITE NEGATIVE (NEGATIVE); PROTEIN NEGATIVE (NEGATIVE); UROBILINOGEN NORMAL (NORMAL)
[2018-08-06] VITALS (11 sets, daily range): BP systolic 107–128; BP diastolic 60–83
[2018-08-06 16:02] LABS: BASOPHILS 0.1 % (0-2); EOSINOPHILS 0 % (0-7); HEMATOCRIT 35.3 % (36.0-48.0); HEMOGLOBIN 12.3 g/dL (12-16); IMMATURE GRANULOCYTES 0.3 % (0-5); MCH 32.5 pg (26.0-34.0); MCHC 34.8 g/dL (31.0-37.0); MCV 93.4 fL (80.0-100.0); MEAN PLATELET VOLUME 10.4 fL (7.4-10.4); MONOCYTES 1.7 % (2-11); NEUTROPHILS 82.9 % (40-80); PLATELET COUNT 250 10x3/uL (130-400); RBC 3.78 10x6/uL (4.00-5.40); RDW 12.3 % (11.5-14.5); WBC 9.4 10x3/uL (4.8-10.8)
[2018-08-06 16:17] LABS: CALC OSMOLALITY 280 mosm/kg (275-300); CALCIUM 9.1 mg/dL (8.5-10.1); CHLORIDE - SERUM 107 mmol/L (98-107); CREATININE - SERUM 0.6 mg/dL (0.6-1.3); GLUCOSE 116 mg/dL (74-106); POTASSIUM - SERUM 4.2 mmol/L (3.5-5.1); SODIUM 141 mmol/L (136-145); UREA NITROGEN 11 mg/dL (7-18); eGFR NON AFRICAN AMERICAN > 90 mL/min (90-120)
[2018-08-07] VITALS: BP 98/47
[2018-08-07 07:45] LABS: HEMATOCRIT 30.8 % (36.0-48.0); HEMOGLOBIN 11.1 g/dL (12-16); LYMPHOCYTES 19.2 % (15-50); MCH 32.6 pg (26.0-34.0); MEAN PLATELET VOLUME 10.3 fL (7.4-10.4); NEUTROPHILS 73.6 % (40-80); PLATELET COUNT 255 10x3/uL (130-400); RDW 12.2 % (11.5-14.5); WBC 10.1 10x3/uL (4.8-10.8)
[2018-08-07 07:52] LABS: MCV 90.6 fL (80.0-100.0)
[2018-08-07 07:53] LABS: CALC OSMOLALITY 279 mosm/kg (275-300); CALCIUM 8.6 mg/dL (8.5-10.1); CARBON DIOXIDE 23.5 mmol/L (21.0-32.0); CHLORIDE - SERUM 104 mmol/L (98-107); CREATININE - SERUM 0.5 mg/dL (0.6-1.3); GLUCOSE 110 mg/dL (74-106); POTASSIUM - SERUM 3.7 mmol/L (3.5-5.1); SODIUM 140 mmol/L (136-145); UREA NITROGEN 13 mg/dL (7-18); eGFR NON AFRICAN AMERICAN > 90 mL/min (90-120)
[2018-08-07 07:55] VITALS: BP 113/69
[2018-08-07] MEDS ORDERED: NORCO 10-325 TA1 TAB PO (14:58)
[2018-08-07] MEDS ORDERED: NICOTINE TOPICAL (15:35)
== END 2018-08-07 16:34 | disposition home or self-care (01) ==
LOC: D.ER 05:23 → D.EDHOLD 09:15 → D.MS 09:15 → D.EDHOLD 09:15 → OBSVTIME 09:16 → D.MS 10:30
PROVIDERS: Emergency Medicine; Family Medicine; Internal Medicine Nephrology
DX: M51.16 Intervertebral disc disorders with radiculopathy, lumbar region (principal); M21.371 Foot drop, right foot; F17.213 Nicotine dependence, cigarettes, with withdrawal; K59.00 Constipation, unspecified; F41.9 Anxiety disorder, unspecified; E80.4 Gilbert syndrome; K21.9 Gastro-esophageal reflux disease without esophagitis

== ENCOUNTER 2018-08-13 11:46 | Emergency (ER) | payer MEDICAID ==
[~2018-08-13] VITALS: Ht 165.1 cm; Wt 51.8 kg
[2018-08-13 11:46] VITALS: Ht 165.1 cm; Wt 51.8 kg
[~2018-08-13 11:46] MED LIST changes: +NICOTINE TOPICAL; +NORCO 10-325 TA1 TAB PO
[2018-08-13 13:02] LABS: HCG SERUM NEGATIVE (NEGATIVE)
[2018-08-13 14:37] VITALS: BP 103/52
== END 2018-08-13 14:30 | disposition home or self-care (01) ==
LOC: D.ER 11:46
PROVIDERS: Family Medicine
DX: M54.5 Low back pain (principal); M79.604 Pain in right leg; Z98.890 Other specified postprocedural states; R20.2 Paresthesia of skin; F17.200 Nicotine dependence, unspecified, uncomplicated; W01.0XXA Fall on same level from slipping, tripping and stumbling without subsequent striking against object, initial encounter; Y93.89 Activity, other specified; Y92.89 Other specified places as the place of occurrence of the external cause

== ENCOUNTER 2018-09-10 12:23 | Emergency (ER) | payer MEDICAID ==
[~2018-09-10] VITALS: Ht 165.1 cm; Wt 52.3 kg
[2018-09-10 13:08] VITALS: Ht 165.1 cm; Wt 52.3 kg
[2018-09-10 15:18] LABS: BASOPHILS 0.3 % (0-2); EOSINOPHILS 0.1 % (0-7); HEMATOCRIT 37.4 % (36.0-48.0); IMMATURE GRANULOCYTES 0.3 % (0-5); LYMPHOCYTES 14.2 % (15-50); MCH 31.7 pg (26.0-34.0); MCHC 34.8 g/dL (31.0-37.0); MCV 91.2 fL (80.0-100.0); MEAN PLATELET VOLUME 10.6 fL (7.4-10.4); MONOCYTES 2.6 % (2-11); NEUTROPHILS 82.5 % (40-80); PLATELET COUNT 213 10x3/uL (130-400); RDW 12.2 % (11.5-14.5); WBC 11.4 10x3/uL (4.8-10.8)
[2018-09-10 15:38] LABS: ALKALINE PHOSPHATASE 67 U/L (46-116); ALT (SGPT) 22 U/L (10-68); BILIRUBIN - TOTAL 0.58 mg/dL (0.2-1.3); CALC OSMOLALITY 283 mosm/kg (275-300); CALCIUM 8.3 mg/dL (8.5-10.1); CARBON DIOXIDE 17.7 mmol/L (21.0-32.0); CHLORIDE - SERUM 106 mmol/L (98-107); CREATININE - SERUM 0.8 mg/dL (0.6-1.3); GLUCOSE 125 mg/dL (74-106); LIPASE 115 U/L (73-393); POTASSIUM - SERUM 3.8 mmol/L (3.5-5.1); PROTEIN - SERUM 6.9 g/dL (6.4-8.2); SODIUM 141 mmol/L (136-145); UREA NITROGEN 19 mg/dL (7-18); eGFR NON AFRICAN AMERICAN > 90 mL/min (90-120)
[2018-09-10 17:17] LABS: HCG URINE NEGATIVE (NEGATIVE)
[2018-09-10 17:20] LABS: APPEARANCE HAZY (CLEAR); BACTERIA FEW /hpf (NONE SEEN); BILIRUBIN NEGATIVE (NEGATIVE); COLOR YELLOW (YELLOW); EPITHELIAL CELLS 0-5 /hpf (0-5); GLUCOSE NEGATIVE (NEGATIVE); KETONE SMALL mg/dL (NEGATIVE); NITRITE NEGATIVE (NEGATIVE); PROTEIN TRACE mg/dL (NEGATIVE); UROBILINOGEN NORMAL (NORMAL); WHITE CELLS - URINE 0-5 /hpf (0-5)
[2018-09-10] MEDS ORDERED: TORADOL10 MG PO (19:09)
[2018-09-10] MEDS ORDERED: ZOFRAN8 MG PO (19:09)
[2018-09-10 20:39] VITALS: BP 101/63
== END 2018-09-10 20:39 | disposition home or self-care (01) ==
LOC: D.ER 12:23
PROVIDERS: Family Medicine
DX: R11.2 Nausea with vomiting, unspecified (principal); K08.89 Other specified disorders of teeth and supporting structures; F17.200 Nicotine dependence, unspecified, uncomplicated

== ENCOUNTER 2019-09-22 08:11 | Inpatient (IN) | payer MEDICAID ==
[~2019-09-22] VITALS: Ht 165.1 cm; Wt 63.4 kg
[~2019-09-22 08:11] MED LIST changes: +TORADOL10 MG PO; +ZOFRAN8 MG PO
[2019-09-22 08:50] LABS: CALC OSMOLALITY 275 mosm/kg (275-300); CALCIUM 9.3 mg/dL (8.5-10.1); CHLORIDE - SERUM 102 mmol/L (98-107); CREATININE - SERUM 0.6 mg/dL (0.6-1.3); GLUCOSE 78 mg/dL (74-106); POTASSIUM - SERUM 3.9 mmol/L (3.5-5.1); SODIUM 137 mmol/L (136-145); UREA NITROGEN 21 mg/dL (7-18); eGFR NON AFRICAN AMERICAN > 90 mL/min (90-120)
[2019-09-22 08:56] LABS: ALBUMIN 4.2 g/dL (3.4-5.0); ALKALINE PHOSPHATASE 104 U/L (46-116); ALT (SGPT) 17 U/L (10-68); BILIRUBIN - TOTAL 1.46 mg/dL (0.2-1.3); PROTEIN - SERUM 7.8 g/dL (6.4-8.2)
[2019-09-22 08:59] LABS: HCG SERUM NEGATIVE (NEGATIVE)
[2019-09-22 09:16] LABS: HEMOGLOBIN 14.6 g/dL (12-16); MCH 33.6 pg (26.0-34.0); MCHC 34.8 g/dL (31.0-37.0); MCV 96.8 fL (80.0-100.0); MEAN PLATELET VOLUME 9.9 fL (7.4-10.4); PLATELET COUNT 312 10x3/uL (130-400); RBC 4.34 10x6/uL (4.00-5.40); RDW 12.7 % (11.5-14.5); WBC 21.7 10x3/uL (4.8-10.8)
[2019-09-22 09:21] LABS: APPEARANCE CLOUDY (CLEAR); BACTERIA MANY /hpf (NEGATIVE); BILIRUBIN NEGATIVE (NEGATIVE); COLOR YELLOW (YELLOW); EPITHELIAL CELLS 0-5 /hpf (0-5); GLUCOSE NEGATIVE (NEGATIVE); KETONE LARGE mg/dL (NEGATIVE); MUCUS <1+ /lpf (NONE SEEN); NITRITE POSITIVE (NEGATIVE); PROTEIN 1+ mg/dL (NEGATIVE); RED CELLS - URINE 0-5 /hpf (0-5); SPECIFIC GRAVITY 1.015 (1.005-1.020)
[2019-09-22 09:50] VITALS: BP 122/83
[2019-09-22 11:04] LABS: LYMPHOCYTES 27 % (15-50); MONOCYTES 6 % (2-11); NEUTROPHILS 63 % (40-80); PLATELET ESTIMATE NORMAL
--- NOTE | 2019-09-22 11:26 | NUR ---
ALERT AND ORIENTED. ADMITTED FROM ER AT THIS TIME. C/O BACK AND LOWER ABD PAIN. FAMILY AT BS.
[2019-09-22 11:36] VITALS: BP 124/83
--- NOTE | 2019-09-22 13:26 | NUR ---
NO CHANGE IN ASSESSMENT. RESTING WO DISTRESS. CL IN REACH. FAMILY AT BS.
--- NOTE | 2019-09-22 15:06 | NUR ---
AWAITING RETURN CALL FROM DR MARINO RE: IF PATIENT NEEDS TO BE ON ABX. PATIENT TOOK SHOWER.
--- NOTE | 2019-09-22 15:21 | NUR ---
NEW ORDERS RECEIVED FROM DR MARINO.
[2019-09-22 15:27] VITALS: BP 122/70
--- NOTE | 2019-09-22 16:01 | NUR ---
ALERT AND ORIENTED. NO C/O PAIN AT THIS TIME. NO CHANGE IN ASSESSMENT. RESP EVEN AND UNLABORED. CL IN REACH. FAMILY AT BS.
--- NOTE | 2019-09-22 18:15 | NUR ---
NO CHANGE IN ASSESSMENT. FAMILY AT BS. RESP EVEN AND UNLABORED. NO DISTRESS NOTED. CL IN REACH.
[2019-09-22 18:37] LABS: APTT 27.3 SECONDS (22.8-39.4); INR 1.04 (0.85-1.17); PROTIME 13.1 SECONDS (11.6-15.0)
[2019-09-22 18:38] LABS: D-DIMER-QUANTITATIVE < 0.27 ug/mLFEU (0.20-0.54)
--- NOTE | 2019-09-22 19:37 | NUR ---
PT LYING IN BED WATCHING TV WITH BOYFRIEND AT BEDSIDE. CL IN REACH. BED IN LOW SIDE RAILS X2. RESP EVEN AND UNLABORED. LUNGS CLEAR. BOWEL ACTIVE X4. A/O X4. DENIES NEEDS AT THIS TIME. WILL CONTINUE TO MONITOR.
[2019-09-22 19:45] VITALS: BP 111/66
--- NOTE | 2019-09-23 03:34 | NUR ---
I have reviewed this patient and I concur with the Shift Assessment completed by the Licensed Practical Nurse today this shift.
[2019-09-23 04:30] VITALS: BP 104/63
[2019-09-23 05:38] LABS: BASOPHILS 0 % (0-2); EOSINOPHILS 0 % (0-7); HEMATOCRIT 37.6 % (36.0-48.0); HEMOGLOBIN 12.7 g/dL (12-16); IMMATURE GRANULOCYTES 0.4 % (0-5); LYMPHOCYTES 17.7 % (15-50); MCH 32.6 pg (26.0-34.0); MCHC 33.8 g/dL (31.0-37.0); MCV 96.7 fL (80.0-100.0); MEAN PLATELET VOLUME 10.1 fL (7.4-10.4); MONOCYTES 5.3 % (2-11); NEUTROPHILS 76.6 % (40-80); PLATELET COUNT 255 10x3/uL (130-400); RBC 3.89 10x6/uL (4.00-5.40); RDW 12.4 % (11.5-14.5)
[2019-09-23 06:04] LABS: WBC 13.7 10x3/uL (4.8-10.8)
[2019-09-23 06:07] LABS: ALKALINE PHOSPHATASE 86 U/L (46-116); ALT (SGPT) 15 U/L (10-68); BILIRUBIN - TOTAL 1.12 mg/dL (0.2-1.3); CALCIUM 8.5 mg/dL (8.5-10.1); CARBON DIOXIDE 17.2 mmol/L (21.0-32.0); CHLORIDE - SERUM 105 mmol/L (98-107); CREATININE - SERUM 0.6 mg/dL (0.6-1.3); GLUCOSE 99 mg/dL (74-106); POTASSIUM - SERUM 4.2 mmol/L (3.5-5.1); PROTEIN - SERUM 6.3 g/dL (6.4-8.2); SODIUM 136 mmol/L (136-145); eGFR NON AFRICAN AMERICAN > 90 mL/min (90-120)
[2019-09-23 06:08] LABS: ALBUMIN 3.1 g/dL (3.4-5.0); CALC OSMOLALITY 270 mosm/kg (275-300); UREA NITROGEN 11 mg/dL (7-18)
--- NOTE | 2019-09-23 07:21 | NUR ---
PT IS RESTING IN BED WITH EYES CLOSED. RESPIRATIONS ARE EVEN AND UNLABORED. PT IS EASILY AROUSED WITH VERBAL STIMULATION. PT IS AAO X 4 UPON AROUSAL. SIGNIFICANT OTHER RESTING IN PT HOSPITAL BED. PT REPORTS PAIN TO BACK AND SIDES. WILL ADDRESS PAIN. SEE EMAR. PT REPORTS BLOOD IN URINE STARTING ON 09/22/19 PM. PT DENIES PRESENCE OF N/V/NUMBNESS/TINGLING. BED IS IN THE LOWEST POSITION. CALL LIGHT AND BEDSIDE TABLE ARE WITHIN REACH. SIDE RAILS X 2. PT DENIES FURTHER NEEDS. WILL CONT TO MONITOR.
--- NOTE | 2019-09-23 07:49 | NUR ---
PT REQUESTS TO BE SALINE LOCKED TO EAT BREAKFAST IN THE CAFETERIA THIS AM WITH SIGNIFICANT OTHER. PT ENCOURAGED TO EAT BREAKFAST IN PT ROOM. PT CONTINUES TO REQUEST TO "GET OUT OF THIS BED AND ROOM FOR JUST A LITTLE BIT". PT IS SALINE LOCKED. PT DENIES FURTHER NEEDS AND IS AAO X 4. PT DENIES PRESENCE OF DIZZINESS UPON STANDING.
[2019-09-23 07:52] VITALS: BP 115/74
--- NOTE | 2019-09-23 11:12 | NUR ---
PIV TO LEFT HAND IS "ITCHING AND REALLY UNCOMFORTABLE" PER PT. PIV REMOVED WITH CATHETER TIP INTACT. DRESSING APPLIED. PIV RESTIE TO RIGHT FA X 1 ATTEMPT. PT TOLERATED WELL.
[2019-09-23 11:42] VITALS: BP 105/67
--- NOTE | 2019-09-23 12:03 | NUR ---
PT REPORTS THAT SHE WAS STANDING UP FROM USING THE RESTROOM AND SLIPPED AND FELL IN WATER THAT WAS LEAKING FROM THE TOILET. PT REPORTS THAT SHE SLIPPED AND HIT HER KNEE BUT DENIES NEEDS AND STATES "I AM FINE". WATER NOTED TO BATHROOM FLOOR AROUND BASE OF TOILET. TOWELS PLACED TO DRY AND KEEP FROM WATER LEAKING FURTHER INTO PT FLOOR. PT DID NOT NEED ASSISTANCE RETURNING TO BED. WORK ORDER PLACED AND SET PRIORITY 1. PARTNER INTEGRATION PLANNER NOTIFIED OF INCIDENT. NURSE TELEPHONE ORDER CLERK NOTIFIED OF PT INCIDENT. CSTARS COMPLETED. PT DENIES FURTHER NEEDS. BED IS IN THE LOWEST POSITION. CALL LIGHT AND BEDSIDE TABLE ARE WITHIN REACH. SIDE RAILS X 2. PT DENIES FURTHER NEEDS. WILL CONT TO MONITOR.
--- NOTE | 2019-09-23 12:39 | NUR ---
DR MARINO ON FLOOR AND NOTIFIED OF PT STATE AND HTN.
--- NOTE | 2019-09-23 12:45 | NUR ---
HAT PLACED IN PT TOILET AND URINE STRAINER PLACED IN PT BATHROOM. PT INFORMED TO NOTIFY NURSE OF EACH VOID TO STRAIN URINE IN ATTEMPT TO SEE IF A STONE IS PRESENCT. PT VERBALIZES UNDERSTANDING. PT DENIES FURTHER QUESTIONS/CONCERNS AT THIS TIME.
[2019-09-23 15:30] VITALS: BP 104/53
--- NOTE | 2019-09-23 16:03 | NUR ---
PT WITH 300ML VOID WITH PINK COLORATION. URINE STRAINED AND BLACK SEDIMENT NOTED IN STRAINER. PT REPORTS CONTINUED "PRESSURE" FEELING TO LOWER ABDOMEN THAT SHE STATES "FEELS LIKE I HAVE A STONE". PT DENIES FURTHER NEEDS. WILL CONT TO MONITOR.
--- NOTE | 2019-09-23 16:22 | NUR ---
PT AT BEDSIDE. PT REQUESTS TO BE SALINE LOCKED SO THAT SHE CAN"GO TO THE VENDING MACHINE".
--- NOTE | 2019-09-23 16:38 | NUR ---
PT RETURNS TO ROOM VIA WHEELCHAIR ESCORTED BY SO.
--- NOTE | 2019-09-23 17:00 | MORECARE ---
CASE MANAGEMENT DISCHARGE SUMMARY PATIENT: PEGGY AVENDANO UNIT: [id number] ADM DATE: 09/22/19 AGE: 29 : [birth year] SEX: F ROOM/BED: D.1213 AUTHOR: CRISTI AVILES PHYSICIAN: REFERRING PHYSICIAN: CÉSAR MALDONADO MD DATE OF SERVICE: 09/23/19 Discharge Plan Patient Name: PEGGY AVENDANO Facility: [facility]:[place] : 1990 Planned Disposition: Home Anticipated Discharge Date: Discharge Date: Expected LOS: Initial Reviewer: [email or web address] Initial Review Date: 09/23/2019 Generated: 09/23/19 6:00 pm Patient Name: PEGGY AVENDANO Page [id number] at 1700 All edits/amendments must be made on the electronic document DICTATION DATE: 09/23/191658 INTERVIEWING CLERK: PATRICIA 09/23/191658 RPT#: [id number] DC DATE: STATUS: ADM IN [facility] [address] [place] [address] END OF REPORT
--- NOTE | 2019-09-23 17:08 | MORECARE ---
CASE MANAGEMENT DISCHARGE SUMMARY PATIENT: PEGGY AVENDANO UNIT: [id number] ADM DATE: 09/22/19 AGE: 29 : [birth year] SEX: F ROOM/BED: D.1213 AUTHOR: STEFAN,DOC PHYSICIAN: REFERRING PHYSICIAN: CÉSAR MALDONADO MD DATE OF SERVICE: 09/23/19 Discharge Plan Patient Name: PEGGY AVENDANO Facility: [facility]:[place] : 1990 Planned Disposition: Home Anticipated Discharge Date: Discharge Date: Expected LOS: Initial Reviewer: [email or web address] Initial Review Date: 09/23/2019 Generated: 09/23/19 6:08 pm Comments DCP- Discharge Planning Updated by [email or web address]: Laila Yañez on 09/23/19 4:[address] Patient Name: PEGGY AVENDANO Admission Status: Elective Accout number: [id number] Admission Date: 09-22-2019 : 1990 Admission Diagnosis: Attending: BELA MALDONADO Current LOS: 1 Anticipated DC Date: Planned Disposition: Home Primary Insurance: MEDICAID [place] PENDING Discharge Planning Comments: CM met with patient to complete initial dc planning assessment. CM educated patient on the CM role and verbal consent given by patient to complete assessment. Patient lives at home with her where she is independent with her care. At discharge patient plans to return home and feels this is a safe discharge. CM discussed availability of home health, rehab services, and medical equipment. Patient will have family drive her home upon discharge. Patient denied known discharge needs at this time. Patient may need assistance with medication upon discharge since Medicaid is pending. CM will continue to follow and will assist as needed with dc plans/needs. Legal Stenographer: Laila Yañez DCPIA - Discharge Planning Initial Assessment Updated by [email or web address]: Laila Yañez on 09/23/19 5:00 pm * Is the patient Alert and Oriented? Yes * How many steps to enter\exit or inside your home? * PCP NO PCP * [facility] * Preadmission Environment Home with Family * ADLs Independent * Equipment None * List name and contact numbers for known caregivers / representatives who currently or will assist patient after discharge: [place] [place] - SPOUSE - [phone] * Verbal permission to speak to the caregivers and representatives has been obtained from the patient. Yes * Community resources currently utilized None * Additional services required to return to the preadmission environment? No * Can the patient safely return to the preadmission environment? Yes * Has this patient been hospitalized within the prior 30 days at any hospital? No Last DP export: 09/23/19 4:00 Patient Name: PEGGY AVENDANO Page 94788 at 1708 All edits/amendments must be made on the electronic document DICTATION DATE: 09/23/191707 LEATHER SPONGER: PATRICIA 09/23/191707 RPT#: [id number] [place] DATE: STATUS: ADM IN [facility] [address] [place] [address] END OF REPORT
[2019-09-23 19:28] VITALS: BP 99/60
--- NOTE | 2019-09-23 19:33 | NUR ---
PT COMPLAINING OF PAIN. MORPHINE PRN GIVEN PER ORDER IN RIGHT FOREARM. IV RUNNING 125ML/HR OF NS. CL IN REACH. DENIES FURTHER NEEDS AT THIS TIME. A/O X4. LUNGS CLEAR. BOWEL ACTIVE X4. BED IN LOW SIDE RAILS X2. RESP EVEN AND UNLABORED. VISITORS IN ROOM. WILL CONTINUE TO MONITOR.
--- NOTE | 2019-09-23 19:53 | NUR ---
PT COMPLAINING OF CONSTIPATION. PAGED CHRISS AND HE PUT ORDERS IN FOR COLACE AND PRN MIRALAX. WCTM
[2019-09-24 00:05] VITALS: BP 101/68
--- NOTE | 2019-09-24 01:10 | NUR ---
I have reviewed this patient and I concur with the Shift Assessment completed by the Licensed Practical Nurse today this shift.
[2019-09-24 04:45] VITALS: BP 116/65
--- NOTE | 2019-09-24 07:03 | NUR ---
PT STILL DID NOT HAVE BM ON THIS SHIFT. WILL LEAVE NOTE FOR ONCOMING NURSE. PT DENIES NEEDS AT THIS TIME. THIS NURSE STRAINED URINE THREE TIMES DURING THE NIGHT AND NO STONES WERE NOTED. WILL CONTINUE TO MONITOR. PT PAIN LEVEL IS DECREASING AND ONLY HURTING AFTER URINATING.
--- NOTE | 2019-09-24 08:20 | NUR ---
AM MEDS ADMINISTERED. PRN TORADOL GIVEN PER PT REQUEST. WCTM.
[2019-09-24 08:30] VITALS: BP 105/66
[2019-09-24 12:23] VITALS: BMI 23.2
[2019-09-24 14:54] LABS: APPEARANCE CLEAR (CLEAR); BILIRUBIN NEGATIVE (NEGATIVE); COLOR YELLOW (YELLOW); GLUCOSE NEGATIVE (NEGATIVE); KETONE NEGATIVE (NEGATIVE); NITRITE NEGATIVE (NEGATIVE); PROTEIN NEGATIVE (NEGATIVE); SPECIFIC GRAVITY 1.005 (1.005-1.020); UROBILINOGEN NORMAL (NORMAL)
[2019-09-24 15:05] LABS: BASOPHILS 0.2 % (0-2); EOSINOPHILS 0.4 % (0-7); HEMATOCRIT 36.9 % (36.0-48.0); HEMOGLOBIN 12.8 g/dL (12-16); IMMATURE GRANULOCYTES 0.3 % (0-5); LYMPHOCYTES 37.7 % (15-50); MCH 32.7 pg (26.0-34.0); MCHC 34.7 g/dL (31.0-37.0); MEAN PLATELET VOLUME 10.2 fL (7.4-10.4); MONOCYTES 4.9 % (2-11); NEUTROPHILS 56.5 % (40-80); PLATELET COUNT 233 10x3/uL (130-400); RBC 3.91 10x6/uL (4.00-5.40); RDW 12.5 % (11.5-14.5)
[2019-09-24 15:13] LABS: MCV 94.4 fL (80.0-100.0); WBC 9.2 10x3/uL (4.8-10.8)
[2019-09-24 15:22] LABS: ALBUMIN 3.7 g/dL (3.4-5.0); ALKALINE PHOSPHATASE 73 U/L (46-116); BILIRUBIN - TOTAL 0.44 mg/dL (0.2-1.3); CALC OSMOLALITY 274 mosm/kg (275-300); CALCIUM 8.8 mg/dL (8.5-10.1); CHLORIDE - SERUM 105 mmol/L (98-107); CREATININE - SERUM 0.7 mg/dL (0.6-1.3); GLUCOSE 95 mg/dL (74-106); POTASSIUM - SERUM 3.8 mmol/L (3.5-5.1); PROTEIN - SERUM 6.6 g/dL (6.4-8.2); SODIUM 138 mmol/L (136-145); UREA NITROGEN 10 mg/dL (7-18); eGFR NON AFRICAN AMERICAN > 90 mL/min (90-120)
[2019-09-24 15:25] LABS: ALT (SGPT) 20 U/L (10-68); CARBON DIOXIDE 22.3 mmol/L (21.0-32.0)
[2019-09-24 17:00] VITALS: Ht 165.1 cm; Wt 63.4 kg
--- NOTE | 2019-09-24 19:00 | NUR ---
BEDSIDE REPORT RECEIVED AND CARE OF PT ASSUMED. PT LYING ON RIGHT SIDE WITH EYES CLOSED. IV TO RIGHT FA PATENT WITH NS INFUSING AT 125 ML/HR. WILL MONITOR FOR NEEDS.
--- NOTE | 2019-09-24 19:25 | NUR ---
WRAPPED IV SO PT COULD SHOWER AND WASH HAIR.
[2019-09-24 19:30] VITALS: BP 92/49
--- NOTE | 2019-09-24 20:19 | NUR ---
HS MEDICATIONS GIVEN TO INCLUDE TORADAL IVP PER REQUEST FOR PAIN. WILL CONTINUE TO MONITOR FOR NEEDS.
--- NOTE | 2019-09-24 22:23 | NUR ---
GAVE MORPHINE IVP PER REQUEST FOR PAIN. WILL CONTINUE TO MONITOR FOR NEEDS.
[2019-09-25 00:30] VITALS: BP 98/50
[2019-09-25 04:57] VITALS: BP 105/54
[2019-09-25 06:33] LABS: BASOPHILS 0.3 % (0-2); HEMATOCRIT 35.4 % (36.0-48.0); LYMPHOCYTES 49.4 % (15-50); MCH 32.4 pg (26.0-34.0); MCHC 33.9 g/dL (31.0-37.0); MCV 95.7 fL (80.0-100.0); MEAN PLATELET VOLUME 10.3 fL (7.4-10.4); MONOCYTES 6.7 % (2-11); NEUTROPHILS 42.6 % (40-80); PLATELET COUNT 219 10x3/uL (130-400); RDW 12.4 % (11.5-14.5)
[2019-09-25 06:34] LABS: WBC 6.3 10x3/uL (4.8-10.8)
[2019-09-25 07:45] LABS: ALBUMIN 3.1 g/dL (3.4-5.0); ALKALINE PHOSPHATASE 61 U/L (46-116); ALT (SGPT) 19 U/L (10-68); CALC OSMOLALITY 275 mosm/kg (275-300); CALCIUM 8.3 mg/dL (8.5-10.1); CARBON DIOXIDE 23.1 mmol/L (21.0-32.0); CHLORIDE - SERUM 107 mmol/L (98-107); GLUCOSE 77 mg/dL (74-106); POTASSIUM - SERUM 3.8 mmol/L (3.5-5.1); PROTEIN - SERUM 5.7 g/dL (6.4-8.2); SODIUM 139 mmol/L (136-145); UREA NITROGEN 10 mg/dL (7-18)
[2019-09-25 07:52] LABS: CREATININE - SERUM 0.5 mg/dL (0.6-1.3); eGFR NON AFRICAN AMERICAN > 90 mL/min (90-120)
--- NOTE | 2019-09-25 09:00 | NUR ---
ALERT AND ORIENTED X4 AND UP ADLIB. MORPHINE 2MG GIVEN SLOW IVP FOR LEFT FLANK PAIN 04/21. IV TO RT. F/A WITH NS INFUSING AT PRESCRIBED RATE. ENCOURAGED TO USE CALL LIGHT FOR ASSIST.
[2019-09-25 09:12] VITALS: BP 113/70
[2019-09-25 13:04] VITALS: BP 133/53
[2019-09-25 16:36] VITALS: BP 123/81
--- NOTE | 2019-09-25 19:00 | NUR ---
BEDSIDE REPORT RECEIVED AND CARE OF PT ASSUMED. PT LYING IN [place]PINE POSITION WITH EYES CLOSED AND EASY RESPIRATIONS. IV TO RIGHT FA PATENT WITH NS INFUSING AT 125 ML/HR. WILL MONITOR FOR NEEDS.
[2019-09-25 20:00] VITALS: BP 116/72
--- NOTE | 2019-09-25 20:11 | NUR ---
HS MEDICATIONS GIVEN TO INCLUDE MORPHINE PER REQUEST FOR PAIN. WILL MONITOR FOR EFFECTIVENESS.
[2019-09-26] VITALS: BP 117/58
[2019-09-26 04:00] VITALS: BP 124/62
[2019-09-26 05:48] LABS: BASOPHILS 0.1 % (0-2); EOSINOPHILS 1.6 % (0-7); HEMATOCRIT 37.4 % (36.0-48.0); HEMOGLOBIN 12.8 g/dL (12-16); IMMATURE GRANULOCYTES 0.1 % (0-5); LYMPHOCYTES 35.2 % (15-50); MCH 32.5 pg (26.0-34.0); MCHC 34.2 g/dL (31.0-37.0); MCV 94.9 fL (80.0-100.0); MEAN PLATELET VOLUME 10.5 fL (7.4-10.4); MONOCYTES 6.5 % (2-11); NEUTROPHILS 56.5 % (40-80); PLATELET COUNT 227 10x3/uL (130-400); RBC 3.94 10x6/uL (4.00-5.40); RDW 12.3 % (11.5-14.5); WBC 6.7 10x3/uL (4.8-10.8)
[2019-09-26 06:10] LABS: ALBUMIN 3.2 g/dL (3.4-5.0); ALKALINE PHOSPHATASE 64 U/L (46-116); ALT (SGPT) 21 U/L (10-68); BILIRUBIN - TOTAL 0.48 mg/dL (0.2-1.3); CALC OSMOLALITY 274 mosm/kg (275-300); CALCIUM 8.5 mg/dL (8.5-10.1); CHLORIDE - SERUM 106 mmol/L (98-107); CREATININE - SERUM 0.5 mg/dL (0.6-1.3); GLUCOSE 100 mg/dL (74-106); POTASSIUM - SERUM 3.7 mmol/L (3.5-5.1); PROTEIN - SERUM 6.1 g/dL (6.4-8.2); SODIUM 138 mmol/L (136-145); UREA NITROGEN 9 mg/dL (7-18); eGFR NON AFRICAN AMERICAN > 90 mL/min (90-120)
--- NOTE | 2019-09-26 08:00 | NUR ---
ALERT AND ORIENTED X4 WITH PT UP AMBULATING IN ROOM. PT STATES HAVING DECREASE FLANK PAIN. HRRR WITH LINGS CTA. IV TO RT. F/A INFUSING AT PRESCRIBED RATE WITH NO S/S OF INFECTION NOTED. ABDOMEN SOFT WITH BS NOTED W/O TENDERNESS. ENCOURAGED TO USE CALL LIGHT FOR ASSIST
[2019-09-26 08:36] VITALS: BP 135/72
[2019-09-26] MEDS ORDERED: FLORAJEN3 CAPS460 MG PO (14:19)
[2019-09-26] MEDS ORDERED: OMNICEF300 MG PO (14:19)
--- NOTE | 2019-09-26 14:45 | NUR ---
PT REQUESTED RX'S TO BE CALLED TO [facility] IN . SPOKE TO PHARMACIST THERE AND THEY CAN TRANSFER FROM [facility] E SCRIPTED TO [facility] ON .
--- NOTE | 2019-09-26 14:48 | MORECARE ---
CASE MANAGEMENT DISCHARGE SUMMARY PATIENT: PEGGY AVENDANO UNIT: [id number] ADM DATE: 09/22/19 AGE: 29 : [birth year] SEX: F ROOM/BED: D.2235 AUTHOR: STEFAN,DOC PHYSICIAN: REFERRING PHYSICIAN: CÉSAR MALDONADO MD DATE OF SERVICE: 09/26/19 Discharge Plan Patient Name: PEGGY AVENDANO Facility: [facility]:[place] : 1990 Planned Disposition: Home Anticipated Discharge Date: 09/26/19 Discharge Date: Expected LOS: 4 Initial Reviewer: [email or web address] Initial Review Date: 09/23/2019 Generated: 09/26/19 3:48 pm Comments DCP- Discharge Planning Updated by [email or web address]: Sharmaine Geronimo on 09/26/19 1:[address] Patient Name: PEGGY AVENDANO Admission Status: Elective Accout number: [id number] Admission Date: 09-22-2019 : 1990 Admission Diagnosis: Attending: BELA MALDONADO Current LOS: 4 Anticipated DC Date: Planned Disposition: Home Primary Insurance: MEDICAID [place] PENDING Discharge Planning Comments: COUPON FOR CEFDINIR GIVEN AND A GOOD RX CARD. STATES SHE LIVES IN [facility] AND SHE WILL USE THE [employer] THERE. CM TO FOLLOW AND ASSIST. Chicken Cleaner: Sharmaine Geronimo DCP- Discharge Planning Updated by [email or web address]: Laila Yañez on 09/23/19 4:[address] Patient Name: PEGGY AVENDANO Admission Status: Elective Accout number: [id number] Admission Date: 09-22-2019 : 1990 Admission Diagnosis: Attending: BELA MALDONADO Current LOS: 1 Anticipated DC Date: Planned Disposition: Home Primary Insurance: MEDICAID [place] PENDING Discharge Planning Comments: CM met with patient to complete initial dc planning assessment. CM educated patient on the CM role and verbal consent given by patient to complete assessment. Patient lives at home with her where she is independent with her care. At discharge patient plans to return home and feels this is a safe discharge. CM discussed availability of home health, rehab services, and medical equipment. Patient will have family drive her home upon discharge. Patient denied known discharge needs at this time. Patient may need assistance with medication upon discharge since Medicaid is pending. CM will continue to follow and will assist as needed with dc plans/needs. Chicken Cleaner: Laila JOSÉ - Discharge Planning Initial Assessment Updated by [email or web address]: Laila Yañez on 09/23/19 5:00 pm * Is the patient Alert and Oriented? Yes * How many steps to enter\exit or inside your home? * PCP NO PCP * Pharmacy [facility] * Preadmission Environment Home with Family * ADLs Independent * Equipment None * List name and contact numbers for known caregivers / representatives who currently or will assist patient after discharge: [facility] [place] - [facility] - [phone] * Verbal permission to speak to the caregivers and representatives has been obtained from the patient. Yes * Community resources currently utilized None * Additional services required to return to the preadmission environment? No * Can the patient safely return to the preadmission environment? Yes * Has this patient been hospitalized within the prior 30 days at any hospital? No Last DP export: 09/23/19 4:08 Patient Name: PEGGY AVENDANO Page 47815 at 1448 All edits/amendments must be made on the electronic document DICTATION DATE: 09/26/191446 NEURODIAGNOSTIC TECHNICIAN: PATRICIA 09/26/191446 RPT#: [id number] DC DATE: STATUS: ADM IN [facility] [address] [place] [address] END OF REPORT
--- NOTE | 2019-09-26 15:00 | NUR ---
IV DISCONTINUED AND VERBALIZED UNDERSTANDING OF DISCHARGE INSTRUCTIONS. LEFT UNDER CARE OF FAMILY WITH PATINET STABLE.
[2019-09-27 20:07] LABS: AEROBE ID Final report (()); RESULT 1 Escherichia coli (())
== END 2019-09-26 15:00 | disposition home or self-care (01) | DRG 552 ==
LOC: D.ER 08:11 → D.M3 10:09 → D.MS 09-24 16:55
PROVIDERS: Family Medicine; ADMIT Emergency Medicine; ATTEND Emergency Medicine
DX: M54.40 Lumbago with sciatica, unspecified side (principal); N12 Tubulo-interstitial nephritis, not specified as acute or chronic; E83.59 Other disorders of calcium metabolism; N29 Other disorders of kidney and ureter in diseases classified elsewhere; N30.90 Cystitis, unspecified without hematuria; Z72.0 Tobacco use

== ENCOUNTER 2020-04-15 07:26 | Inpatient (IN) | payer OTHER ==
[~2020-04-15] VITALS: Ht 165.1 cm; Wt 48.5 kg
--- NOTE | ~2020-04-15 | OP ---
PATIENT NAME: PEGGY AVENDANO MEDICAL RECORD: [id number] :[birth year] LOCATION:D.M2 D.2105 ADMISSION DATE:04/16/20 SURGEON: JACKSON IBANEZ MD DATE OF OPERATION: 04/19/2020 PREOPERATIVE DIAGNOSES: 1. Generalized abdominal pain of uncertain etiology. 2. Biliary dyskinesia. POSTOPERATIVE DIAGNOSES: 1. Generalized abdominal pain of uncertain etiology. 2. Biliary dyskinesia. 3. Possible endometriosis. PROCEDURES: 1. Laparoscopic cholecystectomy. 2. Intraoperative cholangiography without immediate surgeon interpretation. 3. Incidental appendectomy. 4. Small bowel manipulation. SURGEON: Jackson Ibanez MD INSTRUCTOR PROGRAMMABLE CONTROLLERS: None. BLOOD LOSS: Minimal. ANESTHESIA: General. COMPLICATIONS: None. The risks, possible complications and alternatives to the procedure were explained to the patient. She elects to proceed. The discussion specifically included, but was not limited to, bleeding requiring emergency reoperation, infection, bile duct injury, intestinal injury. OPERATIVE COURSE: The patient was conveyed the operating room electively on 04/19/2020. General anesthesia was induced by the anesthesia staff. The abdomen was sterilely prepped and draped. A small skin incision was accomplished in the left upper quadrant. Veress needle was inserted through the skin incision into the peritoneal cavity. CO2 insufflation was begun. Once a sufficient pneumoperitoneum had been achieved, a 12-mm trocar was inserted through a transverse infraumbilical scar. Under direct internal vision utilizing a television camera, a 5-mm trocar was inserted through an incision in the left upper quadrant. A 5-mm trocar was inserted through an incision in the epigastrium. A 5-mm trocar was inserted through an incision far laterally in the right upper quadrant. During insertion of the Veress needle and all trocars, there appeared to have been no injury to the bowels, any intraperitoneal or retroperitoneal structures. Dr. Good performed an examination of the intra-abdominal pelvis and lower abdomen and obtained a biopsy. This is dictated separately. The patient was then positioned in reverse Trendelenburg. The gallbladder was grasped. I advanced a cholangiogram trocar. I punctured the fundus of the gallbladder. I injected dye after aspirating bile. Under fluoroscopy, static OPERATIVE REPORT [id number] PEGGY AVENDANO images were obtained and these were cholangiographic images, which are sent to the radiologist for interpretation. The cholangiogram trocar was removed. The gallbladder was retracted cephalad. The infundibulum was grasped and retracted laterally. Blunt dissection was begun in the triangle of Calot. One cystic artery and one cystic duct were identified. These were clipped multiply and divided between clips. The gallbladder was then excised from its bed in the liver. It was placed within a bag retrieval device and was withdrawn through the infraumbilical fascial defect. Attention was then turned to the appendix. The indication for the appendectomy was to avoid diagnostic confusion in the future should the patient have a recurrence or persistence of abdominal pain. This patient has undergone about 13 CT scans since 2011 for abdominal pain. If we remove organs that may potentially cause infection or pain in the future such as the appendix then this will decrease diagnostic confusion in the future if the patient has a recurrence or persistence of abdominal pain. The appendix was retracted anteriorly. It appeared normal. A window was created in the mesoappendix. I took down the mesoappendix with the laparoscopic EnSeal device. I stapled across the tip of the cecum with an Endo-MARYJANE type staple utilizing a blue load. The appendix was placed within a bag retrieval device. It was withdrawn through the infraumbilical fascial defect. The 12-mm trocars were placed and the abdomen reinsufflated. I again aspirated the right lower quadrant and then the right upper quadrant. There was no bleeding even at low pressure of 8. Again, in order to determine whether there was an intraabdominal inflammatory process, I elected to "run the bowel" which is essentially manipulating bowel by examining all of it. I took some laparoscopic Babcocks and started at the fold of Treves. I then examined the entire small bowel by examining [id number] with laparoscopic Babcocks. At no time was there any injury to the bowel. No injury to the mesentery. I noted no Meckel's diverticulum. No inflammatory bowel disease. No evidence of an internal hernia. The 12-mm trocar was removed. Utilizing the Ramon-Sharon suture closure device, 0 Vicryls were placed through the fascia and tied. The trocars were removed and the abdomen desufflated. The skin at the umbilicus was closed with interrupted intracuticular 3-0 Vicryls. The other skin incisions were closed with interrupted intracuticular 3-0 Vicryls. Benzoin and Steri-Strips were applied. The patient was then extubated and conveyed to post-anesthesia care unit where she was in stable condition. TRANSINT:[id number] Voice Confirmation ID: [id number] DOCUMENT ID: [id number] OPERATIVE REPORT [id number] PEGGY AVENDANO ROBERT MD CC: BRO GOOD MD and FRAN BENJAMIN MD [id number] DICTATION DATE: 04/20/20 0937 PRODUCT SAFETY HEAD: 04/20/20 1012 DIS IN 04/20/20 [id number] [place] [address]
[~2020-04-15 07:26] MED LIST changes: +FLORAJEN3 CAPS460 MG PO; +OMNICEF300 MG PO
[2020-04-15 07:57] LABS: BILIRUBIN NEGATIVE (NEGATIVE); GLUCOSE NEGATIVE (NEGATIVE); KETONE LARGE mg/dL (NEGATIVE); NITRITE NEGATIVE (NEGATIVE); UROBILINOGEN NORMAL (NORMAL)
[2020-04-15 07:58] LABS: BASOPHILS 0.1 % (0-2); EOSINOPHILS 0.1 % (0-7); HEMATOCRIT 43.8 % (36.0-48.0); HEMOGLOBIN 15.7 g/dL (12-16); IMMATURE GRANULOCYTES 0.5 % (0-5); LYMPHOCYTES 6.1 % (15-50); MCH 34.1 pg (26.0-34.0); MCHC 35.8 g/dL (31.0-37.0); MEAN PLATELET VOLUME 10.1 fL (7.4-10.4); NEUTROPHILS 87.2 % (40-80); PLATELET COUNT 257 10x3/uL (130-400); RBC 4.61 10x6/uL (4.00-5.40); RDW 12.7 % (11.5-14.5); WBC 19.1 10x3/uL (4.8-10.8)
[2020-04-15 08:08] LABS: CALC OSMOLALITY 268 mosm/kg (275-300); CALCIUM 9.4 mg/dL (8.5-10.1); CARBON DIOXIDE 21.1 mmol/L (21.0-32.0); CHLORIDE - SERUM 96 mmol/L (98-107); CREATININE - SERUM 0.9 mg/dL (0.6-1.3); GLUCOSE 139 mg/dL (74-106); SODIUM 132 mmol/L (136-145); UREA NITROGEN 17 mg/dL (7-18); eGFR NON AFRICAN AMERICAN 78 mL/min (90-120)
[2020-04-15 08:13] LABS: ALBUMIN 4.6 g/dL (3.4-5.0); ALKALINE PHOSPHATASE 107 U/L (30-120); ALT (SGPT) 275 U/L (10-68); AMYLASE - SERUM 35 U/L (25-115); BILIRUBIN - TOTAL 2.47 mg/dL (0.2-1.3); LIPASE 64 U/L (73-393)
[2020-04-15 08:16] LABS: TROPONIN-I < 0.017 ng/mL (0.000-0.060)
--- NOTE | 2020-04-15 08:50 | NUR ---
PT LEFT ED VIA STRETCHER FOR CT.
--- NOTE | 2020-04-15 08:59 | NUR ---
PT RETUNRED TO ED VIA STRETCHER FROM CT.
--- NOTE | 2020-04-15 10:11 | NUR ---
PT C/O NAUSEA AND REQUESTING ZOFRAN. EDP NOTIFIED.
--- NOTE | 2020-04-15 11:31 | NUR ---
RECEIVED PATIENT FROM ER. ALERT AND ORIENTED ACCOMPANIED BY FAMILY. NO C/O PAIN. PATIENT STATES STILL NAUSEATED. NO S/S OF ACUTE DISTRESS NOTED. IV TO RIGHT HAND, NS WITH 20K+ INFUSING @ 100ML/HR. SITE PATENT WITHOUT REDNESS OR SWELLING. DENIES ANY NEEDS AT THIS TIME. CALL LIGHT IN REACH. WILL CONTINUE TO MONITOR.
[2020-04-15 13:13] VITALS: BP 130/65; BMI 21.6
--- NOTE | 2020-04-15 13:59 | NUR ---
ASSESSMENT COMPLETE PT DENIES ANY NEEDS STATES ABDOMEN/BACK HURTING PAIN 12/20 SIGNIFICANT OTHER AT [facility] WILL CONTINUE TO MONITOR
[2020-04-15 15:00] VITALS: BP 132/65
--- NOTE | 2020-04-15 16:54 | NUR ---
PER NURSE, PT NOT COMPLETELY NPO / EXAM WILL BE DONE IN AM. GCATES,RDMS
--- NOTE | 2020-04-15 17:15 | NUR ---
'S EXCHANGE STATED THAT DR. PRADO IS NOT GLOBAL LEAD UNTIL 1700 TOMORROW. NOTIFIED ELOY MIRANDA APN.
[2020-04-15 18:12] LABS: APTT 25.8 SECONDS (22.8-39.4); PROTIME 13.2 SECONDS (11.6-15.0)
--- NOTE | 2020-04-15 18:15 | NUR ---
ALERT AND ORIENTED. RESTING IN BED WATCHING TV. FAMILY AT BEDSIDE. C/O PAIN, GAVE TORADOL FOR PAIN 12/20. PATIENT VOMITING, GAVE ZOFRAN FOR N/V. NO S/S OF ACUTE DISTRESS NOTED. DENIES ANY NEEDS AT THIS TIME. CALL LIGHT IN REACH. WILL CONTINUE TO MONITOR.
--- NOTE | 2020-04-15 19:31 | NUR ---
RECIEVED UP IN BED WITH EYES OPEN AND BOYFRIEND AT BEDSIDE. IV TO RT HAND WITH NS WITH 20MEQ OF POTASSIUM AT 100CC/HR. ALERT AND ORIENTED X4. UP AD COLTON TO B/R. DENIES ANY NEEDS AT THIS TIME.
[2020-04-15 20:00] VITALS: BP 127/76
[2020-04-16] VITALS: BP 138/81
[2020-04-16 04:00] VITALS: BP 151/91
--- NOTE | 2020-04-16 08:17 | NUR ---
CALLED TO ROOM SO PT COULD ASK IF I WOULD PAGE DOCTOR TO FIND OUT WHEN ULTRASOUND WILL BE DONE CAUSE SHE WANTS TO EAT AND DRINK. INFORMED DOCTOR WOULD NOT HAVE SCHEDULE BUT THAT I WOULD CALL XRAY FOR UPDATE. SHE IS IN BED WITH SIGNIFICANT OTHER, HE WAS CURSING AND STATING THEY HAVE WAITED FOR TEST BEFORE AND THEY WERE NEVER DONE.
[2020-04-16 08:31] VITALS: BP 119/83
[2020-04-16 09:01] LABS: BASOPHILS 0.2 % (0-2); EOSINOPHILS 0.2 % (0-7); HEMOGLOBIN 14.5 g/dL (12-16); IMMATURE GRANULOCYTES 0.6 % (0-5); LYMPHOCYTES 11.7 % (15-50); MCH 33.5 pg (26.0-34.0); MCHC 34.5 g/dL (31.0-37.0); MEAN PLATELET VOLUME 10.1 fL (7.4-10.4); MONOCYTES 9.2 % (2-11); NEUTROPHILS 78.1 % (40-80); PLATELET COUNT 236 10x3/uL (130-400); RBC 4.33 10x6/uL (4.00-5.40); RDW 12.8 % (11.5-14.5)
[2020-04-16 09:02] LABS: WBC 12.9 10x3/uL (4.8-10.8)
[2020-04-16 09:24] LABS: ALKALINE PHOSPHATASE 82 U/L (30-120); BILIRUBIN - TOTAL 1.79 mg/dL (0.2-1.3); CALC OSMOLALITY 271 mosm/kg (275-300); CALCIUM 8.6 mg/dL (8.5-10.1); CARBON DIOXIDE 21.6 mmol/L (21.0-32.0); CHLORIDE - SERUM 101 mmol/L (98-107); CREATININE - SERUM 0.8 mg/dL (0.6-1.3); GLUCOSE 99 mg/dL (74-106); MAGNESIUM - SERUM 1.6 mg/dL (1.8-2.4); PHOSPHOROUS 2.8 mg/dL (2.5-4.9); POTASSIUM - SERUM 3.4 mmol/L (3.5-5.1); PROTEIN - SERUM 6.9 g/dL (6.4-8.2); SODIUM 136 mmol/L (136-145); UREA NITROGEN 13 mg/dL (7-18); eGFR NON AFRICAN AMERICAN 90 mL/min (90-120)
[2020-04-16 09:28] LABS: ALT (SGPT) 182 U/L (10-68)
--- NOTE | 2020-04-16 10:18 | NUR ---
PT WITH COMPLAINTS OF NAUSEA AND PAIN. ZOFRAN AND TORADOL GIVEN IV. STILL WITH VOMITING AND PAIN TO ABDOMENT AND RIBS FROM VOMITING.
[2020-04-16 14:22] LABS: ERYTHROCYTE SEDIMENTATION RATE 5 mm/hr (0-20)
[2020-04-16 14:35] LABS: HCG URINE NEGATIVE (NEGATIVE)
[2020-04-16 14:40] LABS: UDS - AMPHET NEGATIVE QUAL (NEGATIVE); UDS - BARB NEGATIVE QUAL (NEGATIVE); UDS - BENZO NEGATIVE QUAL (NEGATIVE); UDS - COCAINE NEGATIVE QUAL (NEGATIVE); UDS - OPIATE NEGATIVE QUAL (NEGATIVE); UDS - PCP NEGATIVE QUAL (NEGATIVE); UDS - THC POSITIVE QUAL (NEGATIVE)
--- NOTE | 2020-04-16 18:18 | NUR ---
PT BACK FROM [facility]. ATIVAN, ZOFRAN, AND TORADOL GIVEN. ANTIBIOTICS INFUSING. CONSENTS SIGNED FOR EGD TOMORROW.
[2020-04-16 18:29] VITALS: BP 186/79
--- NOTE | 2020-04-16 19:31 | NUR ---
RECIEVED LAYING IN BED WITH SPOUSE. ALERT AND ORIENTED X4. UP AD COLTON TO B/R. EDUCATED ON NPO STATUS FOR AM PROCEDURE. GAVE VERBAL UNDERSTANDING. IV TO RT HAND WITH NSKCL20 @ 100CC/HR. TELEMETRY IN PLACE. DENIES ANY NEEDS AT THIS TIME.
[2020-04-17 00:30] VITALS: BP 110/63
[2020-04-17 05:00] VITALS: BP 122/76
[2020-04-17 05:22] LABS: BASOPHILS 0.1 % (0-2); EOSINOPHILS 0.3 % (0-7); HEMOGLOBIN 12.9 g/dL (12-16); IMMATURE GRANULOCYTES 0.6 % (0-5); LYMPHOCYTES 13.2 % (15-50); MCHC 33.9 g/dL (31.0-37.0); MCV 97.2 fL (80.0-100.0); MEAN PLATELET VOLUME 9.9 fL (7.4-10.4); MONOCYTES 8.2 % (2-11); NEUTROPHILS 77.6 % (40-80); PLATELET COUNT 208 10x3/uL (130-400); RBC 3.91 10x6/uL (4.00-5.40); RDW 12.8 % (11.5-14.5)
[2020-04-17 05:45] LABS: ALBUMIN 3.6 g/dL (3.4-5.0); ALKALINE PHOSPHATASE 68 U/L (30-120); BILIRUBIN - TOTAL 1.39 mg/dL (0.2-1.3); CALC OSMOLALITY 270 mosm/kg (275-300); CALCIUM 8.5 mg/dL (8.5-10.1); CARBON DIOXIDE 24.6 mmol/L (21.0-32.0); CHLORIDE - SERUM 101 mmol/L (98-107); CREATININE - SERUM 0.7 mg/dL (0.6-1.3); GLUCOSE 139 mg/dL (74-106); MAGNESIUM - SERUM 1.5 mg/dL (1.8-2.4); PROTEIN - SERUM 6.2 g/dL (6.4-8.2); SODIUM 135 mmol/L (136-145); UREA NITROGEN 10 mg/dL (7-18); eGFR NON AFRICAN AMERICAN > 90 mL/min (90-120)
[2020-04-17 05:48] LABS: ALT (SGPT) 113 U/L (10-68)
[2020-04-17 08:30] VITALS: BP 136/89
[2020-04-17 12:00] VITALS: BP 119/75; BP 158/97
[2020-04-17 12:35] VITALS: BMI 21.6
--- NOTE | 2020-04-17 16:24 | NUR ---
CONSENTS FOR COLONOSCOPY TOMORROW SIGNED. STATED TO PT SHE NEEDS TO DRINK ALL OF GOLYTELY BY MN AND SHE WILL NPO AFTER MN. PT VERBALIZED UNDERSTANDING.
[2020-04-17 16:50] VITALS: BP 158/97
--- NOTE | 2020-04-17 17:30 | MORECARE ---
CASE MANAGEMENT DISCHARGE SUMMARY PATIENT: PEGGY AVENDANO UNIT: [id number] ADM DATE: 04/16/20 AGE: 29 : [birth year] SEX: F ROOM/BED: D.2101 AUTHOR: CRISTI AVILES PHYSICIAN: REFERRING PHYSICIAN: FRAN BENJAMIN MD DATE OF SERVICE: 04/17/20 Discharge Plan Patient Name: PEGGY AVENDANO Facility: [facility]:[place] : 1990 Planned Disposition: Anticipated Discharge Date: Discharge Date: Expected LOS: Initial Reviewer: [email or web address] Initial Review Date: 04/15/2020 Generated: 04/17/20 6:29 pm Patient Name: PEGGY AVENDANO Page 81654 at 1730 All edits/amendments must be made on the electronic document DICTATION DATE: 04/17/201728 PLASTERER SPRAY GUN: PATRICIA 04/17/201728 RPT#: [id number] DC DATE: STATUS: ADM IN [facility] [address] [place] [address] END OF REPORT
--- NOTE | 2020-04-17 18:28 | NUR ---
I have reviewed this patient and I concur with the Shift Assessment completed by the Licensed Practical Nurse today this shift.
--- NOTE | 2020-04-17 19:05 | NUR ---
REPORT RECEIVED WILL CONTINUE POC. PATIENT IS AAOX4, LYING IN SEMI-FOWLERS POSITION. NO S/S OF DISTRESS OBSERVED, RR EVEN AND UNLABORED ON ROOM AIR. PATIENT WANTS HER IV FLUSHED AND RETAPED, WANTS TO KNOW IF SHE ACTUALLY HAS TO DRINK ALL OF THE GO-LYTELY, INFORMED PATIENT THAT SHE DOES. PATIENT WANTS TORADOL AND ZOFRAN SOON SHE CAN HAVE IT. PATIENT DENIES FURTHER NEEDS AT THIS TIME. CL IN REACH, BED LOCKED AND LOWERED. WILL CTM.
[2020-04-17 20:00] VITALS: BP 119/77
--- NOTE | 2020-04-17 22:00 | NUR ---
PATIENT VOMITTING CLEAR YELLOW EMESIS. PROVIDED MORE EMESIS BAGS. PATIENT FINISHED GO LYTELY. REQUESTING ATIVAN AT THIS TIME.
[2020-04-18 04:00] VITALS: BP 104/69
[2020-04-18 05:34] LABS: BASOPHILS 0.3 % (0-2); EOSINOPHILS 1.5 % (0-7); HEMATOCRIT 36.7 % (36.0-48.0); HEMOGLOBIN 12.6 g/dL (12-16); IMMATURE GRANULOCYTES 0.5 % (0-5); MCH 33.2 pg (26.0-34.0); MCHC 34.3 g/dL (31.0-37.0); MCV 96.6 fL (80.0-100.0); MEAN PLATELET VOLUME 9.8 fL (7.4-10.4); MONOCYTES 11.3 % (2-11); NEUTROPHILS 50.4 % (40-80); PLATELET COUNT 207 10x3/uL (130-400); RDW 12.5 % (11.5-14.5)
[2020-04-18 05:59] LABS: ALBUMIN 3.1 g/dL (3.4-5.0); ALKALINE PHOSPHATASE 57 U/L (30-120); ALT (SGPT) 71 U/L (10-68); BILIRUBIN - TOTAL 1.12 mg/dL (0.2-1.3); CALC OSMOLALITY 274 mosm/kg (275-300); CALCIUM 8.7 mg/dL (8.5-10.1); CARBON DIOXIDE 27.5 mmol/L (21.0-32.0); CHLORIDE - SERUM 105 mmol/L (98-107); CREATININE - SERUM 0.6 mg/dL (0.6-1.3); GLUCOSE 112 mg/dL (74-106); MAGNESIUM - SERUM 1.6 mg/dL (1.8-2.4); POTASSIUM - SERUM 3.5 mmol/L (3.5-5.1); PROTEIN - SERUM 5.6 g/dL (6.4-8.2); SODIUM 138 mmol/L (136-145); UREA NITROGEN 6 mg/dL (7-18); eGFR NON AFRICAN AMERICAN > 90 mL/min (90-120)
[2020-04-18 06:01] LABS: WBC 6.1 10x3/uL (4.8-10.8)
--- NOTE | 2020-04-18 06:20 | NUR ---
I have reviewed this patient and I concur with the Shift Assessment completed by the Licensed Practical Nurse today this shift.
[2020-04-18 09:00] VITALS: BP 111/72
[2020-04-18 11:00] VITALS: BP 121/70
[2020-04-18 13:11] LABS: HEPATITIS C ANTIBODY 0.1 S/CO RAT (0.0-0.9)
--- NOTE | 2020-04-18 19:00 | NUR ---
REPORT RECEIVED, WILL CONTINUE POC. PATIENT AAOX4, LYING ON RIGHT SIDE. NO S/S OF DISTRESS OBSERVED, RR EVEN AND UNLABORED ON ROOM AIR. PATIENT DENIES NEEDS AT THIS TIME. CL IN REACH, BED LOCKED AND LOWERED. WILL CTM.
--- NOTE | 2020-04-18 20:20 | NUR ---
UNHOOKED PATIENT IV SO SHE CAN SHOWER. IV SITES WRAPPED, TOWELS PROVIDED.
[2020-04-18 20:57] VITALS: BP 151/101
[2020-04-18 23:57] VITALS: BP 137/101
[2020-04-19] VITALS (11 sets, daily range): BP systolic 106–150; BP diastolic 66–81; Ht 165.1 cm; Wt 48.5 kg
[2020-04-19 05:09] LABS: BASOPHILS 0.3 % (0-2); EOSINOPHILS 0.9 % (0-7); HEMATOCRIT 35.5 % (36.0-48.0); HEMOGLOBIN 12.3 g/dL (12-16); IMMATURE GRANULOCYTES 0.4 % (0-5); LYMPHOCYTES 36.1 % (15-50); MCH 33.2 pg (26.0-34.0); MCHC 34.6 g/dL (31.0-37.0); MCV 95.9 fL (80.0-100.0); MEAN PLATELET VOLUME 9.7 fL (7.4-10.4); MONOCYTES 11.2 % (2-11); NEUTROPHILS 51.1 % (40-80); PLATELET COUNT 211 10x3/uL (130-400); RDW 12.3 % (11.5-14.5); WBC 6.9 10x3/uL (4.8-10.8)
[2020-04-19 05:34] LABS: ALBUMIN 3.3 g/dL (3.4-5.0); ALKALINE PHOSPHATASE 55 U/L (30-120); ALT (SGPT) 57 U/L (10-68); BILIRUBIN - TOTAL 0.99 mg/dL (0.2-1.3); CALC OSMOLALITY 270 mosm/kg (275-300); CALCIUM 8.3 mg/dL (8.5-10.1); CARBON DIOXIDE 23.2 mmol/L (21.0-32.0); CHLORIDE - SERUM 104 mmol/L (98-107); CREATININE - SERUM 0.7 mg/dL (0.6-1.3); GLUCOSE 93 mg/dL (74-106); MAGNESIUM - SERUM 1.8 mg/dL (1.8-2.4); POTASSIUM - SERUM 3.5 mmol/L (3.5-5.1); PROTEIN - SERUM 5.6 g/dL (6.4-8.2); SODIUM 137 mmol/L (136-145); UREA NITROGEN 5 mg/dL (7-18); eGFR NON AFRICAN AMERICAN > 90 mL/min (90-120)
--- NOTE | 2020-04-19 08:38 | NUR ---
PT C/O RIGHT HAND 20G IV HURTING AND BURNING DC'D WITH CATH INTACT. PT C/O OF LEFT AC IV TENDER BLOOD RETURN IN IV TUBING FLUSHES WELL. ATTEMPTED RIGHT FA IV AND IT BLEW. COULD NOT FIND ANOTHER VEIN. STATED TO PT I WILL TRY HAVE ANOTHER NURSE TRY. PT VERBALIZED UNDERSTANDING.
--- NOTE | 2020-04-19 12:41 | NUR ---
Nutrition Follow-up: NPO for laparoscopy with incidental appendectomy and cholecystectomy today. Noted pt c/o loose stools. WT: 106.9# (04/19) Labs noted: Ca 8.3, Alb 3.3 Meds noted: Protonix, Zofran, Carafate, KCl, electrolyte protocol -Rec ADAT following surgery; if unable to advance within 24-48 hrs, rec consider nutrition support. -Monitor wt; noted daily wts ordered. -RD following.
--- NOTE | 2020-04-19 12:55 | NUR ---
PT DEMANDING TO KNOW WHEN SHE WILL GO TO SX. CALLED SX AND SPOKE WIT CITLALY AND THEY STATED IT WILL BE IN LESS THAN 20 MIN. I VERBALIZED UNDERSTANDING. STATED THIS TO PT AND PT JUST ROLLED HER EYES AND STATED "OK." WILL CONTINUE TO MONITOR.
[2020-04-19 14:10] LABS: EHRLICHIA CHAFF IGG Negative (Neg:<1:64); EHRLICHIA CHAFF IGM Negative (Neg:<1:20); HGE IGG TITER Negative (Neg:<1:64); HGE IGM TITER Negative (Neg:<1:20)
--- NOTE | 2020-04-19 14:20 | NUR ---
I have reviewed this patient and I concur with the Shift Assessment completed by the Licensed Practical Nurse today this shift.
--- NOTE | 2020-04-19 16:10 | NUR ---
PT RETURNED FROM SX LAYING FLAT. ALERT AND ORIENTED ON ROOM AIR. VS STABLE. ABDOMEN HAS X4 INCISION WITH STERI STRIPS AND COVERED WITH BANDAIDS C/D/I. PT LEFT AC 20G IV SL AND SX INSERTED A RIGHT HAND 20G IV WITH IVF INFUSING. PACU NURSE STATES TO ME DR. IBANEZ AND DR. HARRISON PERFORMED SX AND DID A LAPAROSCOPIC CHOLECYSTECTOMY, APPENDECTOMY, AND REMOVED AN OVARIAN CYST. SHE ALSO STATES SHE GAVE DILAUDID AND DEMEROL. I VERBALIZED UNDERSTANDING. BED LOW. CL IN REACH. WILL CONTINUE TO MONITOR.
--- NOTE | 2020-04-19 16:35 | NUR ---
SPOKE WITH DR. IBANEZ ON THE PHONE HE STATES TO ORDER DILAUDID WRITING CENTER DIRECTOR.
--- NOTE | 2020-04-19 18:00 | NUR ---
PT REFUSING SCD'S.
--- NOTE | 2020-04-19 18:37 | NUR ---
DR. IBANEZ ROUNDED ON PT AND THIS NURSE IS IN ROOM HE STATED TO PT HE WAS PLEASED WITH SX HER LIVER LOOKED GOOD BUT HE DID REMOVE HER GALLBLADDER AND APPENDIX AND DR. HARRISON FOUND THAT SHE HAS ENDOMETREOSIS BUT HE THINKS IT CAN BE TREATED MEDICALLY AND HE WILL COME SEE PT TOMORROW. PT VERBALIZED UNDERSTANDING AND HAD NO FURTHER QUESTIONS FOR DR. IBANEZ.
--- NOTE | 2020-04-19 19:00 | NUR ---
REPORT RECEIVED WILL CONTINUE POC. PATIENT IS AAOX4, LYING IN SUPINE POSITION, SPOUSE IN BED WITH PATIENT. NO S/S OF DISTRESS OBSERVED, RR EVEN AND UNLABORED ON ROOM AIR. PATIENT C/O IV SITE PAIN. IV LOOKS GOOD, HAS BLOOD RETURN AND FLUSHED WITH EASE. PATIENT DENIES FURTHER NEEDS AT THIS TIME. CL IN REACH, BED LOCKED AND LOWERED. WILL CTM.
--- NOTE | 2020-04-19 21:00 | NUR ---
PATIENT C/O OF IV SITE PAIN. PATIENT HAS SHOVED GAUZE UNDERNEATH TEGADERM TO "RELIEVE PAIN UNDER IV". EDUCATED PATIENT ON PURPOSE OF TEGADERM AND INFECTION CONTROL. RT HAND SEEMS A LITTLE PUFFY AND BRUISING. CHECKED IV, NO BLOOD RETURN. IV MAY HAVE INFILTRATED. DC'D IV WITH CATH TIP INTACT. BANDAID APPLIED. ALSO CHECK PATIENTS LT AC PIV, IT TOO HAD NO BLOOD RETURN AND DIFFICULT TO FLUSH. DC'D IV WITH CATH TIP INTACT, BANDAID APPLIED. NEW 20G PIV INSERTED TO RT WRIST X1 ATTEMPT. GOOD BLOOD RETURN, FLUSHED WITH EASE. PATIENT TOLERATED WELL. PATIENT DENIES FURTHER NEEDS AT THIS TIME. CL IN REACH, BED LOCKED AND LOWERED. WILL CTM.
--- NOTE | 2020-04-19 22:05 | NUR ---
PATIENT REQUESTING ATIVAN. ADMINISTERED PRN IV ATIVAN PER ORDERS.
[2020-04-20 03:07] LABS: RMSF IGM 1.42 index (0.00-0.89)
[2020-04-20 04:00] VITALS: BP 116/72
[2020-04-20 06:31] LABS: BASOPHILS 0.1 % (0-2); EOSINOPHILS 0 % (0-7); HEMATOCRIT 36.1 % (36.0-48.0); HEMOGLOBIN 12.4 g/dL (12-16); IMMATURE GRANULOCYTES 0.3 % (0-5); LYMPHOCYTES 13.6 % (15-50); MCH 33.3 pg (26.0-34.0); MCHC 34.3 g/dL (31.0-37.0); MEAN PLATELET VOLUME 9.8 fL (7.4-10.4); MONOCYTES 7.8 % (2-11); NEUTROPHILS 78.2 % (40-80); PLATELET COUNT 241 10x3/uL (130-400); RBC 3.72 10x6/uL (4.00-5.40); RDW 12.5 % (11.5-14.5)
[2020-04-20 06:33] LABS: WBC 10.1 10x3/uL (4.8-10.8)
[2020-04-20 06:42] LABS: ALBUMIN 3.6 g/dL (3.4-5.0); ALKALINE PHOSPHATASE 60 U/L (30-120); ALT (SGPT) 68 U/L (10-68); BILIRUBIN - TOTAL 0.89 mg/dL (0.2-1.3); CALC OSMOLALITY 272 mosm/kg (275-300); CARBON DIOXIDE 23.2 mmol/L (21.0-32.0); CHLORIDE - SERUM 103 mmol/L (98-107); CREATININE - SERUM 0.7 mg/dL (0.6-1.3); GLUCOSE 94 mg/dL (74-106); MAGNESIUM - SERUM 1.8 mg/dL (1.8-2.4); POTASSIUM - SERUM 4.2 mmol/L (3.5-5.1); PROTEIN - SERUM 5.8 g/dL (6.4-8.2); SODIUM 137 mmol/L (136-145); UREA NITROGEN 9 mg/dL (7-18); eGFR NON AFRICAN AMERICAN > 90 mL/min (90-120)
--- NOTE | 2020-04-20 07:50 | NUR ---
DR. LARA ROUNDED ON PT IN ROOM AT THIS TIME.
[2020-04-20] MEDS ORDERED: PROTONIX40 MG PO (08:06)
[2020-04-20 09:00] VITALS: BP 109/73
[2020-04-20] MEDS ORDERED: PHENERGAN25 M1 PO (09:19)
[2020-04-20] MEDS ORDERED: PERCOCET 5-3251 TAB PO (09:34)
--- NOTE | 2020-04-20 09:49 | NUR ---
DILAUDID HAND LEATHER TRIMMER, ZOFRAN DRIP, AND NS20K+ DC'D FLUSHED LEFT WRIST IV WITH 10ML NS AND SL IV.
--- NOTE | 2020-04-20 10:15 | NUR ---
DISCHARGE INSTRUCTIONS GIVEN AND EXPLAINED TO PT. DISCHARGE TEACHING DONE WITH PT AND HER MOM AT BEDSIDE.THEY BOTH VERBALIZED UNDERSTANDING AND STATED THEY HAVE NO FURTHER QUESTIONS. PERCOCET SCRIPT GIVEN TO PT. CHART COPY SIGNED. LEFT WRIST 20G IV DC'D WITH CATH INTACT. NO TELEMETRY. PT REFUSED WC AND AMBULATED WITH MOM OUT OF HOSPITAL AND LEFT IN MOM'S PERSONAL VEHICLE WITH ALL BELONGINGS.
--- NOTE | 2020-04-20 14:29 | MORECARE ---
CASE MANAGEMENT DISCHARGE SUMMARY PATIENT: PEGGY AVENDANO UNIT: [id number] ADM DATE: 04/16/20 AGE: 29 : [birth year] SEX: F ROOM/BED: D.2104 AUTHOR: CRISTI AVILES PHYSICIAN: REFERRING PHYSICIAN: FRAN BENJAMIN MD DATE OF SERVICE: 04/20/20 Discharge Plan Patient Name: PEGGY AVENDANO Facility: [facility]:[place] : 1990 Planned Disposition: Home Anticipated Discharge Date: 04/20/20 Discharge Date: 04/20/2020 Expected LOS: 4 Initial Reviewer: [email or web address] Initial Review Date: 04/15/2020 Generated: 04/20/20 3:28 pm Last DP export: 04/17/20 4:30 pm Patient Name: PEGGY AVENDANO Page [id number] at 1429 All edits/amendments must be made on the electronic document DICTATION DATE: 04/20/20 1428 DRUM STENCILER: PATRICIA 04/20/20 1428 RPT#: [id number] DC DATE:04/20/20 STATUS: DIS IN [facility] [address] [place] [address] END OF REPORT
--- NOTE | 2020-04-20 14:45 | MORECARE ---
CASE MANAGEMENT DISCHARGE SUMMARY PATIENT: PEGGY AVENDANO UNIT: [id number] ADM DATE: 04/16/20 AGE: 29 : [birth year] SEX: F ROOM/BED: D.2109 AUTHOR: CRISTI AVILES PHYSICIAN: REFERRING PHYSICIAN: FRAN BENJAMIN MD DATE OF SERVICE: 04/20/20 Discharge Plan Patient Name: PEGGY AVENDANO Facility: [facility]:[place] : 1990 Planned Disposition: Home Anticipated Discharge Date: 04/20/20 Discharge Date: 04/20/2020 Expected LOS: 4 Initial Reviewer: [email or web address] Initial Review Date: 04/15/2020 Generated: 04/20/20 3:44 pm Comments DCP- Discharge Planning Updated by [email or web address]: Esperanza Grey on 04/20/20 1:[address] Cm met with the patient regarding dc needs/plans. Patient states she is independent with all her care at home. Patient lives with her , Alejandro Pastor [phone]. Patient denies any Dc needs at this time. Last DP export: 04/20/20 1:29 pm Patient Name: PEGGY AVENDANO Page 17891 at 1445 All edits/amendments must be made on the electronic document DICTATION DATE: 04/20/20 1444 SPECIFICATION MANAGER: PATRICIA 04/20/20 1444 RPT#: [id number] DC DATE:04/20/20 STATUS: DIS IN [id number] [place] [address] END OF REPORT
== END 2020-04-20 10:41 | disposition home or self-care (01) | DRG 418 ==
LOC: D.ER 07:26 → D.M2 10:27 → OBSVTIME 10:27 → D.M2 04-16 15:29
PROVIDERS: Family Medicine; Surgery; ADMIT Family Medicine; ATTEND Family Medicine
PROC: 0DB98ZX Excision of Duodenum, Via Natural or Artificial Opening Endoscopic, Diagnostic (ICD-10-PCS; 2020-04-17)
PROC: 0DB68ZX Excision of Stomach, Via Natural or Artificial Opening Endoscopic, Diagnostic (ICD-10-PCS; 2020-04-17)
PROC: 0DB28ZX Excision of Middle Esophagus, Via Natural or Artificial Opening Endoscopic, Diagnostic (ICD-10-PCS; 2020-04-17)
PROC: 0DBE8ZX Excision of Large Intestine, Via Natural or Artificial Opening Endoscopic, Diagnostic (ICD-10-PCS; 2020-04-18)
PROC: 0DBL8ZZ Excision of Transverse Colon, Via Natural or Artificial Opening Endoscopic (ICD-10-PCS; 2020-04-18)
PROC: BF101ZZ Fluoroscopy of Bile Ducts using Low Osmolar Contrast (ICD-10-PCS; 2020-04-19)
PROC: 0FT44ZZ Resection of Gallbladder, Percutaneous Endoscopic Approach (ICD-10-PCS; principal; 2020-04-19 12:00)
PROC: 0DTJ4ZZ Resection of Appendix, Percutaneous Endoscopic Approach (ICD-10-PCS; 2020-04-19 12:00)
DX: K82.8 Other specified diseases of gallbladder (principal); A93.8 Other specified arthropod-borne viral fevers; E87.1 Hypo-osmolality and hyponatremia; F17.203 Nicotine dependence unspecified, with withdrawal; K52.9 Noninfective gastroenteritis and colitis, unspecified; R16.0 Hepatomegaly, not elsewhere classified; E87.6 Hypokalemia; F41.9 Anxiety disorder, unspecified; K20.9 Esophagitis, unspecified; K29.70 Gastritis, unspecified, without bleeding; K63.5 Polyp of colon; F12.90 Cannabis use, unspecified, uncomplicated

== ENCOUNTER 2020-04-23 14:35 | Observation (INO) | payer OTHER ==
[~2020-04-23] VITALS: Ht 165.1 cm; Wt 47.7 kg
[~2020-04-23 14:35] MED LIST changes: +PERCOCET 5-3251 TAB PO; +PHENERGAN25 M1 PO; +PROTONIX40 MG PO
[2020-04-23 15:26] LABS: HEMATOCRIT 40.1 % (36.0-48.0); HEMOGLOBIN 14.3 g/dL (12-16); LYMPHOCYTES 10.3 % (15-50); MCH 34.4 pg (26.0-34.0); MCHC 35.7 g/dL (31.0-37.0); MCV 96.4 fL (80.0-100.0); MEAN PLATELET VOLUME 9.9 fL (7.4-10.4); NEUTROPHILS 84.7 % (40-80); RBC 4.16 10x6/uL (4.00-5.40)
[2020-04-23 15:32] LABS: CALC OSMOLALITY 271 mosm/kg (275-300); CALCIUM 9.2 mg/dL (8.5-10.1); CARBON DIOXIDE 25.9 mmol/L (21.0-32.0); CHLORIDE - SERUM 97 mmol/L (98-107); CREATININE - SERUM 0.9 mg/dL (0.6-1.3); GLUCOSE 111 mg/dL (74-106); POTASSIUM - SERUM 3.8 mmol/L (3.5-5.1); SODIUM 136 mmol/L (136-145); UREA NITROGEN 10 mg/dL (7-18); eGFR NON AFRICAN AMERICAN 78 mL/min (90-120)
[2020-04-23 15:34] LABS: HCG SERUM NEGATIVE (NEGATIVE)
[2020-04-23 15:37] LABS: PLATELET COUNT 384 10x3/uL (130-400)
[2020-04-23 15:38] LABS: ALBUMIN 4.2 g/dL (3.4-5.0); ALKALINE PHOSPHATASE 63 U/L (30-120); ALT (SGPT) 39 U/L (10-68); PROTEIN - SERUM 7.1 g/dL (6.4-8.2)
--- NOTE | 2020-04-23 16:05 | NUR ---
PT LEFT ED VIA STRETCHER FOR CT
--- NOTE | 2020-04-23 16:18 | NUR ---
PT RETURNED TO ED VIA STRETCHER
--- NOTE | 2020-04-23 16:56 | NUR ---
RN AND ED PROVIDER AT PT BEDSIDE DISCUSSING PLAN OF CARE. PT CONTINUES TO C/O PAIN. EDP AWARE.
--- NOTE | 2020-04-23 17:53 | NUR ---
ZOFRAN INFUSION PREPARED AT THIS TIME BUT NOT STARTED. PT LEFT ED VIA STRETCHER FOR PIP[facility] SCAN.
--- NOTE | 2020-04-23 18:10 | NUR ---
REPORT CALLED TO PRAVEEN. PT WILL BE TAKEN TO ROOM VIA STRETCHER FOLLOWING PIPIDA SCAN.
--- NOTE | 2020-04-23 19:05 | NUR ---
REC'D PATIENT FROM ER.
--- NOTE | 2020-04-23 19:48 | NUR ---
ADMINISTERED MEDS PER ORDERS. PATIENT DENIES OTHER NEEDS. BED IN LOWEST POSITION AND CALL LIGHT WITHIN REACH. ENCOURAGED THE PATIENT TO CALL IF SHE HAS NEEDS. WILL CONTINUE TO MONITOR.
[2020-04-23 20:00] VITALS: BP 144/90
[2020-04-23 22:51] VITALS: BP 144/90; Ht 165.1 cm; Wt 47.7 kg
[2020-04-23] MEDS ORDERED: PERCOCET 5-3251 TAB PO (23:06)
[2020-04-24 04:00] VITALS: BP 97/56
[2020-04-24 06:27] LABS: HEMATOCRIT 35.5 % (36.0-48.0); HEMOGLOBIN 12.3 g/dL (12-16); MCHC 34.6 g/dL (31.0-37.0); MCV 98.1 fL (80.0-100.0); MEAN PLATELET VOLUME 10.2 fL (7.4-10.4); RBC 3.62 10x6/uL (4.00-5.40); RDW 13.3 % (11.5-14.5)
[2020-04-24 06:36] LABS: PLATELET COUNT 262 10x3/uL (130-400); WBC 8.1 10x3/uL (4.8-10.8)
[2020-04-24 06:54] LABS: ALBUMIN 3.3 g/dL (3.4-5.0); ALKALINE PHOSPHATASE 49 U/L (30-120); BILIRUBIN - TOTAL 0.83 mg/dL (0.2-1.3); CALCIUM 8.5 mg/dL (8.5-10.1); CARBON DIOXIDE 25.7 mmol/L (21.0-32.0); CHLORIDE - SERUM 104 mmol/L (98-107); CREATININE - SERUM 0.7 mg/dL (0.6-1.3); GLUCOSE 76 mg/dL (74-106); MAGNESIUM - SERUM 1.8 mg/dL (1.8-2.4); POTASSIUM - SERUM 3.6 mmol/L (3.5-5.1); PROTEIN - SERUM 5.4 g/dL (6.4-8.2); SODIUM 139 mmol/L (136-145); eGFR NON AFRICAN AMERICAN > 90 mL/min (90-120)
[2020-04-24 07:03] LABS: ALT (SGPT) 27 U/L (10-68); CALC OSMOLALITY 274 mosm/kg (275-300); UREA NITROGEN 7 mg/dL (7-18)
[2020-04-24 07:26] LABS: UDS - AMPHET NEGATIVE QUAL (NEGATIVE); UDS - BARB NEGATIVE QUAL (NEGATIVE); UDS - BENZO POSITIVE QUAL (NEGATIVE); UDS - COCAINE NEGATIVE QUAL (NEGATIVE); UDS - OPIATE POSITIVE QUAL (NEGATIVE); UDS - PCP NEGATIVE QUAL (NEGATIVE); UDS - THC POSITIVE QUAL (NEGATIVE)
[2020-04-24 07:32] LABS: BACTERIA FEW /hpf (NEGATIVE); BILIRUBIN NEGATIVE (NEGATIVE); EPITHELIAL CELLS 0-5 /hpf (0-5); GLUCOSE NEGATIVE (NEGATIVE); KETONE SMALL mg/dL (NEGATIVE); NITRITE NEGATIVE (NEGATIVE); RED CELLS - URINE RARE /hpf (0-5); UROBILINOGEN NORMAL (NORMAL); WHITE CELLS - URINE 0-5 /hpf (NEGATIVE)
[2020-04-24 09:05] VITALS: BP 112/71
[2020-04-24 13:06] VITALS: BP 110/50
[2020-04-24 15:05] VITALS: BP 137/52; BMI 53.2
--- NOTE | 2020-04-24 16:59 | NUR ---
IV REMOVED. CATH TIP INTACT.
== END 2020-04-24 17:51 | disposition home or self-care (01) ==
LOC: D.ER 14:35 → OBSVTIME 17:14 → D.MS 17:14
PROVIDERS: Family Medicine; Surgery; ADMIT Family Medicine Adult Medicine; ATTEND Family Medicine Adult Medicine
DX: G89.18 Other acute postprocedural pain (principal); D72.829 Elevated white blood cell count, unspecified; R16.0 Hepatomegaly, not elsewhere classified; K29.70 Gastritis, unspecified, without bleeding; K20.9 Esophagitis, unspecified; R11.2 Nausea with vomiting, unspecified; N80.9 Endometriosis, unspecified